=== PATIENT | male | born 1935 | race Caucasian/White ===

== ENCOUNTER 2018-05-21 12:33 | Inpatient (IN) | payer MEDICARE ==
[2018-05-21 13:30] LABS: Basophils % (A) 1 %; Eosinophils # (A) 0.2 k/uL (0-0.7); Eosinophils % (A) 5 %; HCT 30.5 % (39.0-53.0); HGB 9.8 gm/dL (13.0-17.5); Lymphocytes # (A) 0.5 k/uL (1.0-4.8); Lymphocytes % (A) 13 %; MCH 28.7 pg (25.0-35.0); MCV 89.7 fL (80.0-100.0); Mean Platelet Volume 8.2; Monocytes # (A) 0.1 k/uL (0-1.0); Monocytes % (A) 3 %; Neutrophils # (A) 3.1 k/uL (1.3-7.7); Neutrophils % (A) 75 %; Platelet Count 131 k/uL (150-450); RDW 14.8 % (11.5-15.5); WBC 4.2 k/uL (3.8-10.6)
[2018-05-21 13:41] LABS: Partial Thromboplastin Time 37.6 sec (22.0-30.0); Prothrombin Time 10.9 sec (9.0-12.0)
--- NOTE | 2018-05-21 13:41 | XR ---
EXAMINATION TYPE: XR chest 2V DATE OF EXAM: 05/21/2018 COMPARISON: NONE HISTORY: Hypotensive and chest pain. TECHNIQUE: Frontal and lateral views of the chest are obtained. FINDINGS: Overlying sternal wires and mediastinal clips are seen. Metallic aortic valve is noted. Ca rdiac silhouette size is enlarged. There is bibasilar opacity consistent with atelectasis and/or inf iltrate. Atherosclerotic thoracic aorta is seen. The osseous structures are somewhat demineralized. IMPRESSION: Cardiomegaly with patchy bibasilar acute infiltrate and/or atelectasis.
[2018-05-21 14:00] LABS: Calcium 8.7 mg/dL (8.4-10.2); Total Bilirubin 0.9 mg/dL (0.2-1.3); Total Protein 5.9 g/dL (6.3-8.2)
[2018-05-21 14:05] LABS: Potassium 6.3 mmol/L (3.5-5.1)
[2018-05-21] MEDS ORDERED: AZITHROMYCIN 500 MG in SODIUM CHLORIDE 0.9% 250 ML IVPB STA (14:29)
[2018-05-21] MEDS ORDERED: SODIUM CHLORIDE 0.9% 500 ML 500 ML IV ONE (14:30)
[2018-05-21] MEDS ORDERED: FUROSEMIDE 10 MG/ML 2 ML VIAL IV ONE (14:31)
[2018-05-21] MEDS ORDERED: NALOXONE 0.4 MG/ML 1 ML VIAL IV PRN (14:57)
--- NOTE | 2018-05-21 14:57 | ED ---
General Adult HPI - General Chief complaint: Recheck/Abnormal Lab/Rx Stated complaint: Hypotension Time Seen by Provider: 05/21/18 12:52 Source: patient, family, EMS, RN notes reviewed, old records reviewed Mode of arrival: EMS Limitations: no limitations - History of Present Illness Initial comments: 82-year-old male presents for evaluation of low blood pressure. Patient has been dealing with increased generalized weakness and low blood pressure for some time. His blood pressure does trend low. "Home care nurse today indicating low blood pressure and was instructed to present to the emergency department. Initially patient has no complaints, no cough or chest pain. He does have dysuria however this is at baseline. Has history of congestive heart failure and has had valve replacement. Patient denies worsening lower extremity edema, this is at baseline. Denies abdominal pain nausea vomiting. Denies fever or chills. - Related Data Home Medications Medication Instructions Recorded Confirmed Amitriptyline HCl 10 mg PO HS 05/21/18 05/21/18 Atorvastatin Calcium [Lipitor] 40 mg PO SA 05/21/18 05/21/18 Carvedilol 12.5 mg PO BID 05/21/18 05/21/18 Clopidogrel [Plavix] 75 mg PO DAILY 05/21/18 05/21/18 Cyclobenzaprine HCl 10 mg PO HS 05/21/18 05/21/18 Ergocalciferol [Vitamin D2] 50,000 unit PO SA 05/21/18 05/21/18 Furosemide [Lasix] 20 mg PO DAILY 05/21/18 05/21/18 Lisinopril [Zestril] 10 mg PO DAILY 05/21/18 05/21/18 metFORMIN HCL ER [Glucophage Xr] 500 mg PO BID 05/21/18 05/21/18 Allergies Allergy/AdvReac Type Severity Reaction Status Date / Time No Known Allergies Allergy Verified 05/21/18 13:44 Review of Systems ROS Statement: Those systems with pertinent positive or pertinent negative responses have been documented in the HPI. ROS Other: All systems not noted in ROS Statement are negative. Past Medical History Past Medical History: Heart Failure, COPD, Hypertension History of Any Multi-Drug Resistant Organisms: None Reported Past Surgical History: Unable to Obtain Past Psychological History: No Psychological Hx Reported Smoking Status: Former smoker Past Alcohol Use History: None Reported Past Drug Use History: None Reported General Exam Limitations: no limitations General appearance: alert, in no apparent distress Head exam: Present: atraumatic, normocephalic Eye exam: Present: normal appearance, PERRL ENT exam: Present: normal exam Neck exam: Present: normal inspection. Absent: tenderness, meningismus Respiratory exam: Present: normal lung sounds bilaterally. Absent: respiratory distress Cardiovascular Exam: Present: regular rate, irregular rhythm, systolic murmur GI/Abdominal exam: Present: soft. Absent: distended, tenderness, guarding Extremities exam: Present: pedal edema Neurological exam: Present: alert, oriented X3, CN II-XII intact. Absent: motor sensory deficit Psychiatric exam: Present: normal affect, normal mood Course Vital Signs 05/21/18 12:48 Temperature 97.8 F Pulse Rate 58 L Respiratory 18 Rate Blood Pressure 90/63 O2 Sat by Pulse 95 Oximetry EKG Findings - EKG Comments: EKG Findings:: EKG: Atrial flutter with variable AV block, left axis deviation, right bundle branch block, no ST segment elevation, rate of 93, QRS duration 148 , QTC 517 Medical Decision Making - Medical Decision Making 82-year-old male with generalized weakness, low blood pressure. Patient's blood pressure is low on initial evaluation, primary care physician has been adjusting his medications recently due to chronic low blood pressure. Laboratory studies are obtained in the emergency Department, white blood cell count normal 4.2, hemoglobin 9.8, no baseline. Patient has a potassium is 6.3 with rhabdomyolysis. Creatinine 2.94, no baseline known. Lactic acid mildly elevated 2.8, BNP significantly elevated 10,000. Chest x-ray does show concern for basilar infiltrate. Patient is started on antibiotics. He is given small volume of IV hydration for his hyperkalemia in addition to his moderately low blood pressure. He is also given a dose of Lasix to encourage diuresis. Patient will be admitted for further evaluation and treatment. Case discussed with the admitting physician. - Lab Data Result diagrams: 05/21/18 13:10 05/21/18 13:10 Lab Results 05/21/18 05/21/18 05/21/18 Range/Units 13:10 13:10 13:10 WBC 4.2 (3.8-10.6) k/uL RBC 3.40 L (4.30-5.90) m/uL Hgb 9.8 L (13.0-17.5) gm/dL Hct 30.5 L (39.0-53.0) % MCV 89.7 (80.0-100.0) fL MCH 28.7 (25.0-35.0) pg MCHC 32.0 (31.0-37.0) g/dL RDW 14.8 (11.5-15.5) % Plt Count 131 L (150-450) k/uL Neutrophils % 75 % Lymphocytes % 13 % Monocytes % 3 % Eosinophils % 5 % Basophils % 1 % Neutrophils # 3.1 (1.3-7.7) k/uL Lymphocytes # 0.5 L (1.0-4.8) k/uL Monocytes # 0.1 (0-1.0) k/uL Eosinophils # 0.2 (0-0.7) k/uL Basophils # 0.0 (0-0.2) k/uL PT (9.0-12.0) sec INR (<1.2) APTT (22.0-30.0) sec Sodium 136 L (137-145) mmol/L Potassium 6.3 H* (3.5-5.1) mmol/L Chloride 104 (98-107) mmol/L Carbon Dioxide 23 (22-30) mmol/L Anion Gap 9 mmol/L BUN 75 H (9-20) mg/dL Creatinine 2.94 H (0.66-1.25) mg/dL Est GFR (CKD-EPI)AfAm 22 (>60 ml/min/1.73 sqM) Est GFR (CKD-EPI)NonAf 19 (>60 ml/min/1.73 sqM) Glucose 193 H (74-99) mg/dL Plasma Lactic Acid Domingo 2.8 H* (0.7-2.0) mmol/L Calcium 8.7 (8.4-10.2) mg/dL Total Bilirubin 0.9 (0.2-1.3) mg/dL AST 23 (17-59) U/L ALT 26 (21-72) U/L Alkaline Phosphatase 69 (38-126) U/L Troponin I (0.000-0.034) ng/mL NT-Pro-B Natriuret Pep pg/mL Total Protein 5.9 L (6.3-8.2) g/dL Albumin 3.0 L (3.5-5.0) g/dL 05/21/18 05/21/18 05/21/18 Range/Units 13:10 13:10 13:10 WBC (3.8-10.6) k/uL RBC (4.30-5.90) m/uL Hgb (13.0-17.5) gm/dL Hct (39.0-53.0) % MCV (80.0-100.0) fL MCH (25.0-35.0) pg MCHC (31.0-37.0) g/dL RDW (11.5-15.5) % Plt Count (150-450) k/uL Neutrophils % % Lymphocytes % % Monocytes % % Eosinophils % % Basophils % % Neutrophils # (1.3-7.7) k/uL Lymphocytes # (1.0-4.8) k/uL Monocytes # (0-1.0) k/uL Eosinophils # (0-0.7) k/uL Basophils # (0-0.2) k/uL PT 10.9 (9.0-12.0) sec INR 1.0 (<1.2) APTT 37.6 H (22.0-30.0) sec Sodium (137-145) mmol/L Potassium (3.5-5.1) mmol/L Chloride (98-107) mmol/L Carbon Dioxide (22-30) mmol/L Anion Gap mmol/L BUN (9-20) mg/dL Creatinine (0.66-1.25) mg/dL Est GFR (CKD-EPI)AfAm (>60 ml/min/1.73 sqM) Est GFR (CKD-EPI)NonAf (>60 ml/min/1.73 sqM) Glucose (74-99) mg/dL Plasma Lactic Acid Domingo (0.7-2.0) mmol/L Calcium (8.4-10.2) mg/dL Total Bilirubin (0.2-1.3) mg/dL AST (17-59) U/L ALT (21-72) U/L Alkaline Phosphatase (38-126) U/L Troponin I 0.021 (0.000-0.034) ng/mL NT-Pro-B Natriuret Pep 70121 pg/mL Total Protein (6.3-8.2) g/dL Albumin (3.5-5.0) g/dL Disposition Clinical Impression: Hyperkalemia, Acute renal failure, Atrial flutter, CHF (congestive heart failure), Community acquired pneumonia Disposition: ADMITTED IP TO THIS HOSP Condition: Serious Is patient prescribed a controlled substance at d/c from ED?: No Referrals: Jayna Emerson DO [Primary Care Provider] - 1-2 days Decision to Admit Reason: Admit from EC Decision Date: 05/21/18 Decision Time: 14:57
[2018-05-21] MEDS: SODIUM CHLORIDE 0.9% 1,000 ML IV SCH (15:42)
--- NOTE | 2018-05-21 17:18 | ECHOF ---
Referral Reason:dayanara MEASUREMENTS -------- HEIGHT: 180.3 cm WEIGHT: 117.9 kg BP: 90/63 IVSd: 1.1 cm (0.6 - 1.1) LVIDd: 3.0 cm (3.9 - 5.3) LVPWd: 1.2 cm (0.6 - 1.1) IVSs: 1.5 cm LVIDs: 1.7 cm LVPWs: 1.5 cm LA Diam: 5.1 cm (2.7 - 3.8) RVIDd: 2.8 cm (< 3.3) MV E Calvin: 1.90 m/s MV DecT: 204 ms MV A Calvin: 0.56 m/s MV E/A Ratio: 3.42 RAP: 5.00 mmHg RVSP: 41.55 mmHg FINDINGS -------- Sinus rhythm. This was a technically adequate study. The left ventricular size is normal. There is borderline concentric left ventricular hypertrophy. Overall left ventricular systolic function is normal with, an EF between 55 - 60 %. The right ventricle is normal in size and function. The left atrium is markedly dilated. The right atrium is normal in size. There is mild aortic valve sclerosis. Trace amount of aortic regurgitation. There is no evidence of aortic stenosis. There is trace to mild mitral regurgitation. Normally functioning bioprosthetic mitral valve. Lcgl-iz-auvxatzg tricuspid regurgitation present. There is mild pulmonary hypertension. The right ventricular systolic pressure, as measured by Doppler, is 41.55mmHg. The pulmonic valve was not well visualized. The aortic root size is normal. IVC Not well visulized. There is no pericardial effusion. CONCLUSIONS -------- 1. Sinus rhythm. 2. This was a technically adequate study. 3. The left ventricular size is normal. 4. There is borderline concentric left ventricular hypertrophy. 5. Overall left ventricular systolic function is normal with, an EF between 55 - 60 %. 6. The left atrium is markedly dilated. 7. There is mild aortic valve sclerosis. 8. Trace amount of aortic regurgitation. 9. There is trace to mild mitral regurgitation. 10. Normally functioning bioprosthetic mitral valve. 11. Dsjo-gy-wncupgcn tricuspid regurgitation present. 12. There is mild pulmonary hypertension. 13. The right ventricular systolic pressure, as measured by Doppler, is 41.55mmHg. 14. The pulmonic valve was not well visualized. 15. The aortic root size is normal. 16. IVC Not well visulized. 17. There is no pericardial effusion. TRANSIT DEPARTMENT CLERK: Roshan Maya RDCS
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
[2018-05-21] MEDS ORDERED: SODIUM POLYSTYRENE SULFONATE 15 GM/60 ML BOTTLE PO STA (19:16)
--- NOTE | 2018-05-21 19:25 | P.HPADDEND ---
H&P Addendum H&P Addendum Date: 05/21/18 Please add to assessment and plan: #13 acute kidney injury, patient denies having any history of kidney disease his creatinine on presentation 2.94 patient has severe hyperkalemia potassium 6.3 #14 EKG showing evidence of atrial flutter with variable AV block, patient denies having any history of atrial fibrillation or atrial flutter Cardiology consult following We'll add Kayexalate Will check kidney ultrasound and consult nephrology
[2018-05-21] MEDS: PIPERACILLIN-TAZOBACTAM 3.375 GM in SODIUM CHLORIDE 0.9% 100 ML IVPB SCH (20:05)
[2018-05-21 20:39] LABS: Glucose,Whole Blood 177 mg/dL (75-99)
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
[2018-05-21] MEDS: AMITRIPTYLINE HCL 10 MG TAB PO SCH (23:43)
[2018-05-21] MEDS: CYCLOBENZAPRINE 10 MG TAB PO SCH (23:43)
[2018-05-21] MEDS: MUPIROCIN 2% OINT 22 GM TUBE TOPICAL SCH (23:45)
--- NOTE | 2018-05-22 01:37 | US ---
EXAMINATION TYPE: US kidneys/renal and bladder DATE OF EXAM: 05/21/2018 COMPARISON: NONE CLINICAL HISTORY: acute renal failure. acute renal failure EXAM MEASUREMENTS: Right Kidney: 10.6 x 4.9 x 4.8 cm Left Kidney: 10.6 x 4.1 x 3.4 cm Right Kidney: Cystic area seen 2.8 x 3.0 x 2.0cm. Cortical thinning. Left Kidney: Hypoechoic area lower pole 1.6 x 1.9 x 2.2cm. Bladder: wnl Bilateral Jets seen: No There is no evidence for hydronephrosis at this point in time. No nephrolithiasis is seen. The urin judi bladder is anechoic. IMPRESSION: There are bilateral renal cysts. Mild renal atrophy. No evidence of solid renal mass or obstruction. No hydronephrosis.
[2018-05-22 06:41] LABS: Glucose,Whole Blood 126 mg/dL (75-99)
[2018-05-22] MEDS: INSULIN ASPART 100 UNIT/ML 1 ML 10 ML VIAL SQ SCH ×4 (07:01→20:18)
--- NOTE | 2018-05-22 08:45 | US ---
EXAMINATION TYPE: US venous doppler duplex LE DATE OF EXAM: 05/22/2018 7:23 AM COMPARISON: NONE CLINICAL HISTORY: DVT. Leg Swelling SIDE PERFORMED: Bilateral TECHNIQUE: The lower extremity deep venous system is examined utilizing real time linear array sonog cristobal with graded compression, doppler sonography and color-flow sonography. VESSELS IMAGED: External Iliac Vein (EIV) Common Femoral Vein Deep Femoral Vein Greater Saphenous Vein * Femoral Vein Popliteal Vein Small Saphenous Vein * Proximal Calf Veins (* superficial vessels) Grayscale, color doppler, spectral doppler imaging performed of the deep veins of the lower extremiti es. Right Leg: Negative for DVT Left Leg: Negative for DVT There is normal flow, compressibility, vascular waveforms. Edema channels are noted within the soft t issues of the lower extremities IMPRESSION: No evident deep venous thrombosis at or above the knees.
[2018-05-22] MEDS: MUPIROCIN 2% OINT 22 GM TUBE TOPICAL SCH (08:54)
[2018-05-22] MEDS: PIPERACILLIN-TAZOBACTAM 3.375 GM in SODIUM CHLORIDE 0.9% 100 ML IVPB SCH ×3 (08:54→23:42)
[2018-05-22] MEDS: CLOPIDOGREL 75 MG TAB PO SCH (08:54)
[2018-05-22] MEDS ORDERED: FUROSEMIDE 20 MG TAB PO SCH (09:00)
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
[2018-05-22] MEDS ORDERED: HEPARIN SODIUM,PORCINE 5,000 UNIT/ML 1 ML VIAL IV ONE (11:26)
[2018-05-22] MEDS ORDERED: HEPARIN SODIUM,PORCINE 5,000 UNIT/ML 1 ML VIAL IV PRN (11:26)
[2018-05-22 11:27] LABS: Glucose,Whole Blood 171 mg/dL (75-99)
[2018-05-22 11:29] LABS: HCT 28.7 % (39.0-53.0); HGB 9.1 gm/dL (13.0-17.5); Hypochromasia Slight; MCH 29.1 pg (25.0-35.0); MCHC 31.9 g/dL (31.0-37.0); MCV 91.1 fL (80.0-100.0); Mean Platelet Volume 7.6; Platelet Count 137 k/uL (150-450); RBC 3.15 m/uL (4.30-5.90); RDW 14.9 % (11.5-15.5); WBC 4.5 k/uL (3.8-10.6)
[2018-05-22] MEDS ORDERED: FUROSEMIDE 10 MG/ML 4 ML VIAL IV SCH (11:30)
[2018-05-22 11:39] LABS: Calcium 8.7 mg/dL (8.4-10.2)
[2018-05-22 11:48] LABS: Partial Thromboplastin Time 39.9 sec (22.0-30.0)
[2018-05-22] MEDS ORDERED: DEXTROSE 50%-WATER 50 ML SYRINGE IVP STA ×3 (11:49→23:35)
[2018-05-22] MEDS ORDERED: INSULIN REGULAR 100 UNIT/ML VIAL IV ONE ×3 (11:49→23:34)
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
[2018-05-22] MEDS: SODIUM CHLORIDE 0.9% 1,000 ML IV SCH (12:05)
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
[2018-05-22] MEDS: METOPROLOL TARTRATE 12.5 MG TAB PO SCH ×2 (12:31→20:19)
[2018-05-22] MEDS: MIDODRINE 5 MG TAB PO SCH ×2 (12:31→16:29)
[2018-05-22] MEDS ORDERED: SODIUM POLYSTYRENE SULFONATE 15 GM/60 ML BOTTLE PO STA (12:39)
--- NOTE | 2018-05-22 12:48 | P.PN ---
Subjective Progress Note Date: 05/22/18 Kj Alarcon is an 82-year-old male patient of Dr. Jayna Emerson who presented to [facility] emergency room with multiple medical problems, patient was complaining of increasing weakness, and hypotension, he had multiple falls at home, requiring intervention by the fire department as he was unable to stand up on his own and his is unable to help him up, patient had low blood pressure on the day of admission and was told by his visiting nurse to go to emergency room. Patient states that he moved to this area 1-1/2 years ago from [facility], he has been following with Dr. Jayna Emerson since he came to [facility] he does not see any other specialist he has a visiting nurse who goes to his home and help with lower extremity ulcers management he has an Unna boot on his left lower extremity. Patient has a known history of congestive heart failure, COPD, hypertension, hyperlipidemia, coronary artery disease with previous history of angioplasty and stent placement, history of mitral valve replacement with bovine valve, history of partial gastric resection due to bleeding ulcers, and history of right total knee arthroplasty. Patient used to smoke but quit in 1989 he started smoking as a teenager. On 05/22/2018 patient is alert and oriented 3 in no apparent distress he is sitting up at the edge of the bed his shortness of breath is slightly better he has occasional cough otherwise he denies any complaints there is no fever or chills no headache or dizziness no chest pain no nausea or vomiting no abdominal pain no diarrhea and no urinary symptoms. Objective - Vital Signs Vital signs: Vital Signs Temp 98.1 F 05/22/18 11:40 Pulse 119 H 05/22/18 11:40 Resp 20 05/22/18 11:40 BP 106/66 05/22/18 11:40 Pulse Ox 95 05/22/18 11:40 Intake & Output 05/21/18 05/22/18 05/22/18 18:59 06:59 18:59 Intake Total 600 240 Output Total 450 Balance 150 240 Weight 117.934 kg Intake: Intake, IV Titration 600 Amount Piperacillin-Tazobactam 3 100 .375 gm In Sodium Chloride 0.9% 100 ml @ 25 mls/hr IVPB Q12HR [facility] Rx #:[id number] Sodium Chloride 0.9% 1, 500 000 ml @ 50 mls/hr IV . Q20H [facility] Rx#:[id number] Oral 240 Output: Urine 450 - Exam In general patient is alert and oriented 3 in no apparent distress HEENT head normocephalic and atraumatic Neck is supple no JVD no goiter no lymphadenopathy Chest exam reveals a scattered crackles bilaterally no wheezing Cardiac exam reveals regular heart sounds S1 and S2 no gallops no murmurs Abdomen is soft nontender no organomegaly with normal bowel sounds Extremity exam reveales bilateral legs with gauze wrap and julien wraps extenting t just below the knee - Labs CBC & Chem 7: 05/22/18 10:53 05/22/18 10:53 Labs: Abnormal Lab Results - Last 24 Hours (Table) 05/21/18 05/21/18 05/21/18 Range/Units 13:10 13:10 13:10 RBC 3.40 L (4.30-5.90) m/uL Hgb 9.8 L (13.0-17.5) gm/dL Hct 30.5 L (39.0-53.0) % Plt Count 131 L (150-450) k/uL Lymphocytes # 0.5 L (1.0-4.8) k/uL APTT (22.0-30.0) sec Sodium 136 L (137-145) mmol/L Potassium 6.3 H* (3.5-5.1) mmol/L BUN 75 H (9-20) mg/dL Creatinine 2.94 H (0.66-1.25) mg/dL Glucose 193 H (74-99) mg/dL POC Glucose (mg/dL) (75-99) mg/dL Plasma Lactic Acid Domingo 2.8 H* (0.7-2.0) mmol/L Total Protein 5.9 L (6.3-8.2) g/dL Albumin 3.0 L (3.5-5.0) g/dL 05/21/18 05/21/18 05/21/18 Range/Units 13:10 17:50 20:36 RBC (4.30-5.90) m/uL Hgb (13.0-17.5) gm/dL Hct (39.0-53.0) % Plt Count (150-450) k/uL Lymphocytes # (1.0-4.8) k/uL APTT 37.6 H (22.0-30.0) sec Sodium (137-145) mmol/L Potassium (3.5-5.1) mmol/L BUN (9-20) mg/dL Creatinine (0.66-1.25) mg/dL Glucose (74-99) mg/dL POC Glucose (mg/dL) 177 H (75-99) mg/dL Plasma Lactic Acid Domingo 3.2 H* (0.7-2.0) mmol/L Total Protein (6.3-8.2) g/dL Albumin (3.5-5.0) g/dL 05/22/18 05/22/18 05/22/18 Range/Units 06:26 10:53 10:53 RBC 3.15 L (4.30-5.90) m/uL Hgb 9.1 L (13.0-17.5) gm/dL Hct 28.7 L (39.0-53.0) % Plt Count 137 L (150-450) k/uL Lymphocytes # (1.0-4.8) k/uL APTT (22.0-30.0) sec Sodium (137-145) mmol/L Potassium 6.0 H (3.5-5.1) mmol/L BUN 68 H (9-20) mg/dL Creatinine 2.80 H (0.66-1.25) mg/dL Glucose 144 H (74-99) mg/dL POC Glucose (mg/dL) 126 H (75-99) mg/dL Plasma Lactic Acid Domingo (0.7-2.0) mmol/L Total Protein (6.3-8.2) g/dL Albumin (3.5-5.0) g/dL 05/22/18 05/22/18 Range/Units 10:53 11:19 RBC (4.30-5.90) m/uL Hgb (13.0-17.5) gm/dL Hct (39.0-53.0) % Plt Count (150-450) k/uL Lymphocytes # (1.0-4.8) k/uL APTT 39.9 H (22.0-30.0) sec Sodium (137-145) mmol/L Potassium (3.5-5.1) mmol/L BUN (9-20) mg/dL Creatinine (0.66-1.25) mg/dL Glucose (74-99) mg/dL POC Glucose (mg/dL) 171 H (75-99) mg/dL Plasma Lactic Acid Domingo (0.7-2.0) mmol/L Total Protein (6.3-8.2) g/dL Albumin (3.5-5.0) g/dL Assessment and Plan Plan: #1 acute exacerbation of congestive heart failure #2 by basilar infiltrate suggestive of pneumonia #3 underlying history of chronic obstructive pulmonary disease #4 underlying history of coronary artery disease with previous history of stent placement #5 underlying history of hypertension, with hypotension at this time, patient was maintained on lisinopril and Coreg at home #6 generalized weakness with multiple falls #7 sepsis with lactic acidosis #8 severe hyperkalemia #9 protein calorie malnutrition decreased albumin down to 3 #10 bilateral lower extremity cellulitis #11 multiple skin breakdown on the sacral area and bilateral lower extremities #12 underlying history of [id number] diabetes mellitus millimeters maintained on metformin #13 acute kidney injury, patient denies having any history of kidney disease his creatinine on presentation 2.94 patient has severe hyperkalemia potassium 6.3 #14 EKG showing evidence of atrial flutter with variable AV block, patient denies having any history of atrial fibrillation or atrial flutter Plan at this time patient is admitted to telemetry floor He was started on IV antibiotic Rocephin and Zithromax He was given IV Lasix in the emergency room Echocardiogram was ordered Will consult cardiology, pulmonary, nephrology and infectious disease Prognosis is guarded due to age generalized debility and multiple medical problems Will follow closely
[2018-05-22] MEDS: HEPARIN SOD,PORK IN 0.45% NACL 25,000 UNIT in 0.45% NACL 1 250ML.BAG IV SCH (12:51)
--- NOTE | 2018-05-22 14:04 | XR ---
EXAMINATION TYPE: XR chest 1V portable DATE OF EXAM: 05/22/2018 COMPARISON: Prior chest x-ray 05/21/2018 HISTORY: Shortness of breath, atrial fibrillation and congestive heart failure TECHNIQUE: Single frontal view of the chest is obtained. FINDINGS: Patient is rotated and post median sternotomy. There are overlying cardiac leads. No pneum othorax. Patchy basilar density again noted obscuring the left hemidiaphragm. Heart size is likely st able. Arthropathy noted shoulders. IMPRESSION: Possible left lower lobe atelectasis versus pneumonia and associated effusion, follow-up PA and lateral chest x-ray is recommended.
[2018-05-22] MEDS ORDERED: AZITHROMYCIN 500 MG TAB PO SCH (16:00)
[2018-05-22 16:43] LABS: Glucose,Whole Blood 129 mg/dL (75-99)
[2018-05-22 18:15] LABS: Appearance,Urine Clear (Clear); Bilirubin,Urine Negative (Negative); Blood,Urine Negative (Negative); Color,Urine Light Yellow; Glucose,Urine (UA) Negative (Negative); Ketones,Urine Negative (Negative); Leukocyte Esterase,Urine Negative (Negative); Nitrite,Urine Negative (Negative); Protein,Urine Negative (Negative); Urobilinogen,Urine <2.0 mg/dL (<2.0)
[2018-05-22] MEDS ORDERED: ALBUTEROL NEBULIZED 2.5 MG/3 ML INHALATION STA (18:23)
[2018-05-22 18:54] LABS: Hemoglobin A1C 6.6 % (4.0-6.0)
[2018-05-22 20:14] LABS: Glucose,Whole Blood 143 mg/dL (75-99)
[2018-05-22] MEDS: CYCLOBENZAPRINE 10 MG TAB PO SCH (20:18)
[2018-05-22] MEDS: AMITRIPTYLINE HCL 10 MG TAB PO SCH (20:19)
--- NOTE | 2018-05-22 22:58 | P.PN ---
Subjective Progress Note Date: 05/22/18 82-year-old male cared for by Dr. Jayna Emerson in the outpatient setting over the last year and a half after they moved from the [facility]. He has apparently peripheral vascular disease and chronic venous stasis and has difficulties with chronic ulcerations the left lower extremity for which he has been treated with an Unna boot per the visiting nurse on an ongoing basis. Despite that he's been having difficulties with a large amount of drainage from the leg because of the skin openings that he has and drainage. He relates to little discomfort at this time. However at home he became increasingly weak over the days before admission. Eventually he simply just fell and the family could not get him up. Constantly EMS was called and he was brought to hospital. He is not complaining of severe amount of pain but still feels weak in quite poorly overall. He does have multiple medical troubles includes underlying coronary artery disease. He has a history of mitral valve replacement, chronic anemia, no known history of renal failure. 05/22/2018 patient still feels poorly. The leg wrap is helped to lower extremity edema considerably and they are not painful. Drainage is improved since coming to hospital. Objective - Vital Signs Vital signs: Vital Signs Temp 98.8 F 05/22/18 20:00 Pulse 105 H 05/22/18 20:00 Resp 20 05/22/18 20:00 BP 84/50 05/22/18 20:00 Pulse Ox 94 L 05/22/18 20:00 Intake & Output 05/22/18 05/22/18 05/23/18 06:59 18:59 06:59 Intake Total 600 720 Output Total 450 0 Balance 150 720 Weight 117.934 kg Intake: Intake, IV Titration 600 Amount Piperacillin-Tazobactam 3 100 .375 gm In Sodium Chloride 0.9% 100 ml @ 25 mls/hr IVPB Q12HR RASHEL Rx #:[id number] Sodium Chloride 0.9% 1, 500 000 ml @ 50 mls/hr IV . Q20H RASHEL Rx#:[id number] Oral 720 Output: Urine 450 0 Post Void Residual 0 - Labs CBC & Chem 7: 05/22/18 10:53 05/22/18 16:03 Labs: Abnormal Lab Results - Last 24 Hours (Table) 05/22/18 05/22/18 05/22/18 Range/Units 06:26 08:26 10:53 RBC 3.15 L (4.30-5.90) m/uL Hgb 9.1 L (13.0-17.5) gm/dL Hct 28.7 L (39.0-53.0) % Plt Count 137 L (150-450) k/uL APTT (22.0-30.0) sec Potassium (3.5-5.1) mmol/L BUN (9-20) mg/dL Creatinine (0.66-1.25) mg/dL Glucose (74-99) mg/dL POC Glucose (mg/dL) 126 H (75-99) mg/dL Hemoglobin A1c 6.6 H (4.0-6.0) % 05/22/18 05/22/18 05/22/18 Range/Units 10:53 10:53 11:19 RBC (4.30-5.90) m/uL Hgb (13.0-17.5) gm/dL Hct (39.0-53.0) % Plt Count (150-450) k/uL APTT 39.9 H (22.0-30.0) sec Potassium 6.0 H (3.5-5.1) mmol/L BUN 68 H (9-20) mg/dL Creatinine 2.80 H (0.66-1.25) mg/dL Glucose 144 H (74-99) mg/dL POC Glucose (mg/dL) 171 H (75-99) mg/dL Hemoglobin A1c (4.0-6.0) % 05/22/18 05/22/18 05/22/18 Range/Units 16:03 16:38 18:52 RBC (4.30-5.90) m/uL Hgb (13.0-17.5) gm/dL Hct (39.0-53.0) % Plt Count (150-450) k/uL APTT 53.6 H (22.0-30.0) sec Potassium 6.0 H (3.5-5.1) mmol/L BUN (9-20) mg/dL Creatinine (0.66-1.25) mg/dL Glucose (74-99) mg/dL POC Glucose (mg/dL) 129 H (75-99) mg/dL Hemoglobin A1c (4.0-6.0) % 05/22/18 Range/Units 20:12 RBC (4.30-5.90) m/uL Hgb (13.0-17.5) gm/dL Hct (39.0-53.0) % Plt Count (150-450) k/uL APTT (22.0-30.0) sec Potassium (3.5-5.1) mmol/L BUN (9-20) mg/dL Creatinine (0.66-1.25) mg/dL Glucose (74-99) mg/dL POC Glucose (mg/dL) 143 H (75-99) mg/dL Hemoglobin A1c (4.0-6.0) % Microbiology - Last 24 Hours (Table) 05/21/18 23:50 Gram Stain - Preliminary Leg - Left Wound Culture - Preliminary 05/21/18 13:10 Blood Culture - Preliminary Blood No Growth after 24 hours Assessment and Plan (1) Acute renal failure Current Visit: Yes Status: Acute Code(s): N17.9 - ACUTE KIDNEY FAILURE, UNSPECIFIED SNOMED Code(s): 26697041 (2) Chronic venous stasis dermatitis of both lower extremities Narrative/Plan: 82-year-old male who has multiple medical troubles including a history of underlying coronary artery disease presents to Hospital with onset of profound weakness fall and unable to be brought to hospital by the family and consequently was brought by EMS. The patient remains very weak but he does have quite clear mentation. There is evidence of the acute renal failure as well as hyperkalemia and nephrology consult is pending. The patient does have any history of known coronary disease and a mitral valve replacement and appears to have a component of acute congestive heart failure diastolic type is noted by the markedly elevated BNP. There is a lactic acidosis is improving and appears to be multifactorial including concerns to infection to the lower extremity, as well as complication of the acute renal failure and congestive heart failure. Antimicrobial therapy has been initially with piperacillin tazobactam and azithromycin. Cultures are in process and will further help direct antimicrobial therapy. No history of MRSA infection and we'll not utilize vancomycin therapy with the acute renal failure at this time. The pulmonary changes appear to be congestive heart failure. The patient is unclear about his baseline anemia and thrombocytopenia and will be monitored. Data from the outside physicians will hopefully give some further background in magnitude of current changes. Local wound care with foam dressings has been requested. Given the swelling to the lower extremities lateral lower extremity venous duplex have been requested to ensure no evidence of deep venous thrombosis and potentially further characterize his venous insufficiency. 05/22/2018 Dopplers of the performed without evidence of deep venous thrombosis. Drainage from the lower extremities improved with elevation wraps. Does appear to be feeling somewhat better since admission. Cultures are in process. Patient has now been seen by nephrology and the acute renal failure is being addressed as the hyperkalemia. Critical care is following and they strongly doubt pneumonia. Current antibiotic therapy as directed to the potential cellulitis to the lower extremities cultures in process and will further help direct antimicrobial therapy. Current Visit: Yes Status: Acute Code(s): I87.2 - VENOUS INSUFFICIENCY ( CHRONIC) (PERIPHERAL) SNOMED Code(s): 86173559
[2018-05-23 02:02] LABS: Appearance,Urine Clear (Clear); Bilirubin,Urine Negative (Negative); Blood,Urine Negative (Negative); Color,Urine Yellow; Glucose,Urine (UA) Negative (Negative); Ketones,Urine Negative (Negative); Leukocyte Esterase,Urine Negative (Negative); Nitrite,Urine Negative (Negative); Protein,Urine Negative (Negative); Specific Gravity,Urine 1.011 (1.001-1.035); Urobilinogen,Urine <2.0 mg/dL (<2.0)
[2018-05-23 05:54] LABS: Iron Saturation 19.55 (15.00-50.00)
[2018-05-23 06:32] LABS: Basophils % (A) 0 %; Eosinophils # (A) 0.1 k/uL (0-0.7); Eosinophils % (A) 2 %; HCT 29.5 % (39.0-53.0); Hypochromasia Slight; Lymphocytes # (A) 0.6 k/uL (1.0-4.8); Lymphocytes % (A) 11 %; MCH 27.9 pg (25.0-35.0); MCHC 30.7 g/dL (31.0-37.0); MCV 90.8 fL (80.0-100.0); Mean Platelet Volume 7.4; Monocytes # (A) 0.2 k/uL (0-1.0); Monocytes % (A) 4 %; Neutrophils # (A) 4.4 k/uL (1.3-7.7); Neutrophils % (A) 80 %; Platelet Count 143 k/uL (150-450); RBC 3.25 m/uL (4.30-5.90); WBC 5.4 k/uL (3.8-10.6)
[2018-05-23 06:38] LABS: Albumin 2.7 g/dL (3.5-5.0); Calcium 8.5 mg/dL (8.4-10.2); Magnesium 2.5 mg/dL (1.6-2.3); Potassium 5.6 mmol/L (3.5-5.1); Total Bilirubin 0.9 mg/dL (0.2-1.3); Total Protein 5.4 g/dL (6.3-8.2)
[2018-05-23 06:48] LABS: Glucose,Whole Blood 92 mg/dL (75-99)
[2018-05-23] MEDS: MIDODRINE 5 MG TAB PO SCH ×2 (06:50→15:58)
[2018-05-23] MEDS: INSULIN ASPART 100 UNIT/ML 1 ML 10 ML VIAL SQ SCH ×4 (06:50→21:35)
[2018-05-23] MEDS: MUPIROCIN 2% OINT 22 GM TUBE TOPICAL SCH (08:50)
[2018-05-23] MEDS: PIPERACILLIN-TAZOBACTAM 3.375 GM in SODIUM CHLORIDE 0.9% 100 ML IVPB SCH ×2 (08:53→15:57)
[2018-05-23] MEDS: CLOPIDOGREL 75 MG TAB PO SCH (08:53)
[2018-05-23] MEDS: METOPROLOL TARTRATE 12.5 MG TAB PO SCH ×2 (08:53→20:12)
[2018-05-23] MEDS ORDERED: SODIUM POLYSTYRENE SULFONATE 15 GM/60 ML BOTTLE PO STA (10:36)
--- NOTE | 2018-05-23 10:48 | P.PN ---
Subjective Progress Note Date: 05/23/18 Kj Alarcon is an 82-year-old male patient of Dr. Jayna Emerson who presented to [facility] emergency room with multiple medical problems, patient was complaining of increasing weakness, and hypotension, he had multiple falls at home, requiring intervention by the fire department as he was unable to stand up on his own and his is unable to help him up, patient had low blood pressure on the day of admission and was told by his visiting nurse to go to emergency room. Patient states that he moved to this area 1-1/2 years ago from [facility], he has been following with Dr. Jayna Emerson since he [facility] he does not see any other specialist he has a visiting nurse who goes to his home and help with lower extremity ulcers management he has an Unna boot on his left lower extremity. Patient has a known history of congestive heart failure, COPD, hypertension, hyperlipidemia, coronary artery disease with previous history of angioplasty and stent placement, history of mitral valve replacement with bovine valve, history of partial gastric resection due to bleeding ulcers, and history of right total knee arthroplasty. Patient used to smoke but quit in 1989 he started smoking as a teenager. On 05/22/2018 patient is alert and oriented 3 in no apparent distress he is sitting up at the edge of the bed his shortness of breath is slightly better he has occasional cough otherwise he denies any complaints there is no fever or chills no headache or dizziness no chest pain no nausea or vomiting no abdominal pain no diarrhea and no urinary symptoms. 05/23/2018 patient lying in bed comfortably. Denies any shortness of breath. Son with lower extremity still having lower extremity edema. Legs are is wrapped. Patient is complaining of discomfort on his bottom. Evidence of the dermatitis and small coccyx stage II ulcer. Zinc oxide ordered. Hemoglobin 9 creatinine 2.80-2.82. Potassium is 5.6 iron low at 43 Objective - Vital Signs Vital signs: Vital Signs Temp 98.1 F 05/23/18 08:00 Pulse 90 05/23/18 08:00 Resp 18 05/23/18 08:00 BP 100/66 05/23/18 08:00 Pulse Ox 95 05/23/18 08:00 Intake & Output 05/22/18 05/23/18 05/23/18 18:59 06:59 18:59 Intake Total 720 Output Total 0 200 Balance 720 -200 Weight 117.934 kg 78.5 kg Intake: Oral 720 Output: Urine 0 200 Post Void Residual 0 Other: # Voids 0 1 - Exam Head normocephalic Neck supple Lungs clear to auscultation bilaterally no wheezing or crackles Heart irregular. A. fib on monitor Abdomen is soft nontender nondistended positive bowel sounds no hepatosplenomegaly Extremities edema bilateral lower extremities. Legs are Rosalio wrapped Neuro alert and orientated to 3 Skin exam buttocks area is red, stage II ulcer on the coccyx area - Labs CBC & Chem 7: 05/23/18 05:34 05/23/18 05:34 Labs: Abnormal Lab Results - Last 24 Hours (Table) 05/22/18 05/22/18 05/22/18 Range/Units 08:26 10:53 10:53 RBC 3.15 L (4.30-5.90) m/uL Hgb 9.1 L (13.0-17.5) gm/dL Hct 28.7 L (39.0-53.0) % MCHC (31.0-37.0) g/dL Plt Count 137 L (150-450) k/uL Lymphocytes # (1.0-4.8) k/uL APTT (22.0-30.0) sec Potassium 6.0 H (3.5-5.1) mmol/L BUN 68 H (9-20) mg/dL Creatinine 2.80 H (0.66-1.25) mg/dL Glucose 144 H (74-99) mg/dL POC Glucose (mg/dL) (75-99) mg/dL Hemoglobin A1c 6.6 H (4.0-6.0) % Magnesium (1.6-2.3) mg/dL Iron (65-175) ug/dL TIBC (228-460) ug/dL AST (17-59) U/L Total Protein (6.3-8.2) g/dL Albumin (3.5-5.0) g/dL 05/22/18 05/22/18 05/22/18 Range/Units 10:53 11:19 16:03 RBC (4.30-5.90) m/uL Hgb (13.0-17.5) gm/dL Hct (39.0-53.0) % MCHC (31.0-37.0) g/dL Plt Count (150-450) k/uL Lymphocytes # (1.0-4.8) k/uL APTT 39.9 H (22.0-30.0) sec Potassium 6.0 H (3.5-5.1) mmol/L BUN (9-20) mg/dL Creatinine (0.66-1.25) mg/dL Glucose (74-99) mg/dL POC Glucose (mg/dL) 171 H (75-99) mg/dL Hemoglobin A1c (4.0-6.0) % Magnesium (1.6-2.3) mg/dL Iron (65-175) ug/dL TIBC (228-460) ug/dL AST (17-59) U/L Total Protein (6.3-8.2) g/dL Albumin (3.5-5.0) g/dL 05/22/18 05/22/18 05/22/18 Range/Units 16:03 16:38 18:52 RBC (4.30-5.90) m/uL Hgb (13.0-17.5) gm/dL Hct (39.0-53.0) % MCHC (31.0-37.0) g/dL Plt Count (150-450) k/uL Lymphocytes # (1.0-4.8) k/uL APTT 53.6 H (22.0-30.0) sec Potassium (3.5-5.1) mmol/L BUN (9-20) mg/dL Creatinine (0.66-1.25) mg/dL Glucose (74-99) mg/dL POC Glucose (mg/dL) 129 H (75-99) mg/dL Hemoglobin A1c (4.0-6.0) % Magnesium (1.6-2.3) mg/dL Iron 43 L (65-175) ug/dL TIBC 220 L (228-460) ug/dL AST (17-59) U/L Total Protein (6.3-8.2) g/dL Albumin (3.5-5.0) g/dL 05/22/18 05/22/18 05/23/18 Range/Units 20:12 22:17 05:34 RBC (4.30-5.90) m/uL Hgb (13.0-17.5) gm/dL Hct (39.0-53.0) % MCHC (31.0-37.0) g/dL Plt Count (150-450) k/uL Lymphocytes # (1.0-4.8) k/uL APTT 52.6 H (22.0-30.0) sec Potassium 5.6 H (3.5-5.1) mmol/L BUN (9-20) mg/dL Creatinine (0.66-1.25) mg/dL Glucose (74-99) mg/dL POC Glucose (mg/dL) 143 H (75-99) mg/dL Hemoglobin A1c (4.0-6.0) % Magnesium (1.6-2.3) mg/dL Iron (65-175) ug/dL TIBC (228-460) ug/dL AST (17-59) U/L Total Protein (6.3-8.2) g/dL Albumin (3.5-5.0) g/dL 05/23/18 05/23/18 Range/Units 05:34 05:34 RBC 3.25 L (4.30-5.90) m/uL Hgb 9.0 L (13.0-17.5) gm/dL Hct 29.5 L (39.0-53.0) % MCHC 30.7 L (31.0-37.0) g/dL Plt Count 143 L (150-450) k/uL Lymphocytes # 0.6 L (1.0-4.8) k/uL APTT (22.0-30.0) sec Potassium 5.6 H (3.5-5.1) mmol/L BUN 69 H (9-20) mg/dL Creatinine 2.82 H (0.66-1.25) mg/dL Glucose (74-99) mg/dL POC Glucose (mg/dL) (75-99) mg/dL Hemoglobin A1c (4.0-6.0) % Magnesium 2.5 H (1.6-2.3) mg/dL Iron (65-175) ug/dL TIBC (228-460) ug/dL AST 16 L (17-59) U/L Total Protein 5.4 L (6.3-8.2) g/dL Albumin 2.7 L (3.5-5.0) g/dL Microbiology - Last 24 Hours (Table) 05/21/18 23:50 Gram Stain - Preliminary Leg - Left Wound Culture - Preliminary 05/21/18 13:10 Blood Culture - Preliminary Blood No Growth after 24 hours Assessment and Plan Assessment: #1 acute on chronic diastolic congestive heart failure exacerbation. Currently off of diuretics. Lasix discontinued yesterday. Not on ROSALIO inhibitor due to hypotension and renal failure. Echo shows an EF of 55-60% mild to moderate tricuspid regurgitation. Cardiology following #2 atrial flutter: Cardiology is following. Currently on IV heparin for anticoagulation #3 acute kidney injury secondary to ATN due to hypotension and medications. Patient had been on ROSALIO inhibitor and diuretics at home. Nephrology is following. No evidence of hydronephrosis on renal ultrasound. Creatinine 2.8 to #4 hyperkalemia secondary to acute kidney injury and lisinopril. Potassium still 5.6. We'll give another dose of Kayexalate. Follow-up labs in a.m. #5 history of aortic valve replacement #6 iron deficiency anemia: Hemoglobin 9. Total iron 43 #7 bilateral lower extremity cellulitis . Followed by infectious disease. Continue current antibiotics. Doppler negative for DVT #8 Severe protein calorie malnutrition add Glucerna shakes #9 elevated lactic acid due to sepsis present on admission #10 generalized weakness and multiple falls due to CHF, acute kidney injury and infection #11 diabetes mellitus type 2 A1c 6.6. 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 Keep pressure off the area Consult PT GI prophylaxis Pepcid and DVT prophylaxis IV heparin I performed an examination of the patient and discussed their management with the physician Imaging Specialist. I have reviewed the Physician Imaging Specialist's notes and agree with the documented findings and plan of care
[2018-05-23] MEDS ORDERED: FUROSEMIDE 10 MG/ML 4 ML VIAL IV STA (11:16)
[2018-05-23] MEDS: ZINC OXIDE 20% OINT 28.4 GM TUBE TOPICAL SCH ×3 (11:29→20:14)
--- NOTE | 2018-05-23 11:36 | P.PN ---
Subjective Progress Note Date: 05/23/18 Principal diagnosis: CHF This is a pleasant 82-year-old gentleman with a past medical history significant for valvular heart disease and status post aortic valve replacement using bioprosthetic valve, congestive heart failure secondary to diastolic dysfunction, as well as multiple comorbid conditions was admitted to the hospital with CHF exacerbation as well as atrial fibrillation with RVR which is new to the patient. On follow-up with him today, 05/23/2018, overall he is feeling better. The shortness of breath is better. Denies having any chest pain or discomfort. The Lasix has been managed by the nephrology team. The echocardiogram showed normal LV function. He continues to be on heparin IV for anticoagulation at this point and we will consider starting the patient on oral anticoagulation. Objective - Vital Signs Vital signs: Vital Signs Temp 98 F 05/23/18 11:21 Pulse 66 05/23/18 11:21 Resp 18 05/23/18 11:21 BP 107/65 05/23/18 11:21 Pulse Ox 95 05/23/18 11:21 Intake & Output 05/22/18 05/23/18 05/23/18 18:59 06:59 18:59 Intake Total 720 Output Total 0 200 Balance 720 -200 Weight 117.934 kg 78.5 kg Intake: Oral 720 Output: Urine 0 200 Post Void Residual 0 Other: # Voids 0 1 - Constitutional General appearance: Present: no acute distress - Respiratory Respiratory: bilateral: diminished - Cardiovascular Heart sounds: normal: S1, S2 Abnormal Heart Sounds: Present: systolic murmur - Labs CBC & Chem 7: 05/23/18 05:34 05/23/18 05:34 Labs: Abnormal Lab Results - Last 24 Hours (Table) 05/22/18 05/22/18 05/22/18 Range/Units 08:26 10:53 10:53 RBC 3.15 L (4.30-5.90) m/uL Hgb 9.1 L (13.0-17.5) gm/dL Hct 28.7 L (39.0-53.0) % MCHC (31.0-37.0) g/dL Plt Count 137 L (150-450) k/uL Lymphocytes # (1.0-4.8) k/uL APTT (22.0-30.0) sec Potassium 6.0 H (3.5-5.1) mmol/L BUN 68 H (9-20) mg/dL Creatinine 2.80 H (0.66-1.25) mg/dL Glucose 144 H (74-99) mg/dL POC Glucose (mg/dL) (75-99) mg/dL Hemoglobin A1c 6.6 H (4.0-6.0) % Magnesium (1.6-2.3) mg/dL Iron (65-175) ug/dL TIBC (228-460) ug/dL AST (17-59) U/L Total Protein (6.3-8.2) g/dL Albumin (3.5-5.0) g/dL 05/22/18 05/22/18 05/22/18 Range/Units 10:53 16:03 16:03 RBC (4.30-5.90) m/uL Hgb (13.0-17.5) gm/dL Hct (39.0-53.0) % MCHC (31.0-37.0) g/dL Plt Count (150-450) k/uL Lymphocytes # (1.0-4.8) k/uL APTT 39.9 H (22.0-30.0) sec Potassium 6.0 H (3.5-5.1) mmol/L BUN (9-20) mg/dL Creatinine (0.66-1.25) mg/dL Glucose (74-99) mg/dL POC Glucose (mg/dL) (75-99) mg/dL Hemoglobin A1c (4.0-6.0) % Magnesium (1.6-2.3) mg/dL Iron 43 L (65-175) ug/dL TIBC 220 L (228-460) ug/dL AST (17-59) U/L Total Protein (6.3-8.2) g/dL Albumin (3.5-5.0) g/dL 05/22/18 05/22/18 05/22/18 Range/Units 16:38 18:52 20:12 RBC (4.30-5.90) m/uL Hgb (13.0-17.5) gm/dL Hct (39.0-53.0) % MCHC (31.0-37.0) g/dL Plt Count (150-450) k/uL Lymphocytes # (1.0-4.8) k/uL APTT 53.6 H (22.0-30.0) sec Potassium (3.5-5.1) mmol/L BUN (9-20) mg/dL Creatinine (0.66-1.25) mg/dL Glucose (74-99) mg/dL POC Glucose (mg/dL) 129 H 143 H (75-99) mg/dL Hemoglobin A1c (4.0-6.0) % Magnesium (1.6-2.3) mg/dL Iron (65-175) ug/dL TIBC (228-460) ug/dL AST (17-59) U/L Total Protein (6.3-8.2) g/dL Albumin (3.5-5.0) g/dL 05/22/18 05/23/18 05/23/18 Range/Units 22:17 05:34 05:34 RBC (4.30-5.90) m/uL Hgb (13.0-17.5) gm/dL Hct (39.0-53.0) % MCHC (31.0-37.0) g/dL Plt Count (150-450) k/uL Lymphocytes # (1.0-4.8) k/uL APTT 52.6 H (22.0-30.0) sec Potassium 5.6 H 5.6 H (3.5-5.1) mmol/L BUN 69 H (9-20) mg/dL Creatinine 2.82 H (0.66-1.25) mg/dL Glucose (74-99) mg/dL POC Glucose (mg/dL) (75-99) mg/dL Hemoglobin A1c (4.0-6.0) % Magnesium 2.5 H (1.6-2.3) mg/dL Iron (65-175) ug/dL TIBC (228-460) ug/dL AST 16 L (17-59) U/L Total Protein 5.4 L (6.3-8.2) g/dL Albumin 2.7 L (3.5-5.0) g/dL 05/23/18 Range/Units 05:34 RBC 3.25 L (4.30-5.90) m/uL Hgb 9.0 L (13.0-17.5) gm/dL Hct 29.5 L (39.0-53.0) % MCHC 30.7 L (31.0-37.0) g/dL Plt Count 143 L (150-450) k/uL Lymphocytes # 0.6 L (1.0-4.8) k/uL APTT (22.0-30.0) sec Potassium (3.5-5.1) mmol/L BUN (9-20) mg/dL Creatinine (0.66-1.25) mg/dL Glucose (74-99) mg/dL POC Glucose (mg/dL) (75-99) mg/dL Hemoglobin A1c (4.0-6.0) % Magnesium (1.6-2.3) mg/dL Iron (65-175) ug/dL TIBC (228-460) ug/dL AST (17-59) U/L Total Protein (6.3-8.2) g/dL Albumin (3.5-5.0) g/dL Microbiology - Last 24 Hours (Table) 05/21/18 23:50 Gram Stain - Preliminary Leg - Left Wound Culture - Preliminary 05/21/18 13:10 Blood Culture - Preliminary Blood No Growth after 24 hours Assessment and Plan Assessment: Assessment #1 congestive heart failure exacerbation secondary to diastole dysfunction #2 atrial fibrillation which is known to the patient #3 status post aortic valve replacement #4 history of stroke #5 multiple comorbid conditions Plan #1 continue IV anticoagulation. We'll consider oral anticoagulation #2 the IV Lasix has been managed by the nephrology team #3 continue monitor the kidney function and electrolytes #4 follow-up with the patient
--- NOTE | 2018-05-23 11:45 | P.PN ---
Subjective Patient is seen in follow-up for acute kidney injury. Renal function is stable with creatinine at 2.82 today. Potassium level is 5.6. Currently sitting up in bed. Denies chest pain or shortness of breath. Admits to good urine output. Maintain on IV heparin for A. fib. Heart rate controlled. Vital signs are stable. General: The patient appeared well nourished and normally developed. HEENT: Head exam is unremarkable. Neck is without jugular venous distension. LUNGS: Lungs are clear to auscultation and percussion. Breath sounds decreased. HEART: Rate and Rhythm are regular. First and second heart sounds normal. No murmurs, rubs or gallops. ABDOMEN: Abdominal exam reveals normal bowel sounds. Non-tender and non- distended. No evidence of peritonitis. EXTREMITITES: 1+ edema. Lower extremities wrapped. Objective - Vital Signs Vital signs: Vital Signs Temp 98 F 05/23/18 11:21 Pulse 66 05/23/18 11:21 Resp 18 05/23/18 11:21 BP 107/65 05/23/18 11:21 Pulse Ox 95 05/23/18 11:21 Intake & Output 05/22/18 05/23/18 05/23/18 18:59 06:59 18:59 Intake Total 720 Output Total 0 200 Balance 720 -200 Weight 117.934 kg 78.5 kg Intake: Oral 720 Output: Urine 0 200 Post Void Residual 0 Other: # Voids 0 1 - Labs CBC & Chem 7: 05/23/18 05:34 05/23/18 05:34 Labs: Abnormal Lab Results - Last 24 Hours (Table) 05/22/18 05/22/18 05/22/18 Range/Units 08:26 10:53 16:03 RBC (4.30-5.90) m/uL Hgb (13.0-17.5) gm/dL Hct (39.0-53.0) % MCHC (31.0-37.0) g/dL Plt Count (150-450) k/uL Lymphocytes # (1.0-4.8) k/uL APTT 39.9 H (22.0-30.0) sec Potassium 6.0 H (3.5-5.1) mmol/L BUN (9-20) mg/dL Creatinine (0.66-1.25) mg/dL POC Glucose (mg/dL) (75-99) mg/dL Hemoglobin A1c 6.6 H (4.0-6.0) % Magnesium (1.6-2.3) mg/dL Iron (65-175) ug/dL TIBC (228-460) ug/dL AST (17-59) U/L Total Protein (6.3-8.2) g/dL Albumin (3.5-5.0) g/dL 05/22/18 05/22/18 05/22/18 Range/Units 16:03 16:38 18:52 RBC (4.30-5.90) m/uL Hgb (13.0-17.5) gm/dL Hct (39.0-53.0) % MCHC (31.0-37.0) g/dL Plt Count (150-450) k/uL Lymphocytes # (1.0-4.8) k/uL APTT 53.6 H (22.0-30.0) sec Potassium (3.5-5.1) mmol/L BUN (9-20) mg/dL Creatinine (0.66-1.25) mg/dL POC Glucose (mg/dL) 129 H (75-99) mg/dL Hemoglobin A1c (4.0-6.0) % Magnesium (1.6-2.3) mg/dL Iron 43 L (65-175) ug/dL TIBC 220 L (228-460) ug/dL AST (17-59) U/L Total Protein (6.3-8.2) g/dL Albumin (3.5-5.0) g/dL 05/22/18 05/22/18 05/23/18 Range/Units 20:12 22:17 05:34 RBC (4.30-5.90) m/uL Hgb (13.0-17.5) gm/dL Hct (39.0-53.0) % MCHC (31.0-37.0) g/dL Plt Count (150-450) k/uL Lymphocytes # (1.0-4.8) k/uL APTT 52.6 H (22.0-30.0) sec Potassium 5.6 H (3.5-5.1) mmol/L BUN (9-20) mg/dL Creatinine (0.66-1.25) mg/dL POC Glucose (mg/dL) 143 H (75-99) mg/dL Hemoglobin A1c (4.0-6.0) % Magnesium (1.6-2.3) mg/dL Iron (65-175) ug/dL TIBC (228-460) ug/dL AST (17-59) U/L Total Protein (6.3-8.2) g/dL Albumin (3.5-5.0) g/dL 05/23/18 05/23/18 Range/Units 05:34 05:34 RBC 3.25 L (4.30-5.90) m/uL Hgb 9.0 L (13.0-17.5) gm/dL Hct 29.5 L (39.0-53.0) % MCHC 30.7 L (31.0-37.0) g/dL Plt Count 143 L (150-450) k/uL Lymphocytes # 0.6 L (1.0-4.8) k/uL APTT (22.0-30.0) sec Potassium 5.6 H (3.5-5.1) mmol/L BUN 69 H (9-20) mg/dL Creatinine 2.82 H (0.66-1.25) mg/dL POC Glucose (mg/dL) (75-99) mg/dL Hemoglobin A1c (4.0-6.0) % Magnesium 2.5 H (1.6-2.3) mg/dL Iron (65-175) ug/dL TIBC (228-460) ug/dL AST 16 L (17-59) U/L Total Protein 5.4 L (6.3-8.2) g/dL Albumin 2.7 L (3.5-5.0) g/dL Microbiology - Last 24 Hours (Table) 05/21/18 23:50 Gram Stain - Preliminary Leg - Left Wound Culture - Preliminary 05/21/18 13:10 Blood Culture - Preliminary Blood No Growth after 24 hours Assessment and Plan Plan: Assessment: 1. Acute kidney injury secondary to ATN secondary to hypotension. Patient was also taking lisinopril and diuretics at home. Creatinine 2.94 on admission. Stable at 2.82 today. Unclear as to what his baseline renal function is. No evidence of hydronephrosis noted on renal ultrasound. UA benign. 2. Hyperkalemia secondary to acute kidney injury and lisinopril. 3. Diabetes mellitus. 4. Anemia. Iron deficiency noted. 5. History of aortic valve replacement. 6. Atrial flutter maintained on IV heparin and Lopressor. 7. Lower extremity ulcerations maintained on antibiotics. Infectious disease following. 8. Hypotension. Better. Maintained on midodrine. 9. Diastolic CHF with mild to moderate tricuspid regurgitation. Plan: Lasix 40 mg IV once today. Encouraged oral intake. Low potassium diet. Repeat potassium level this evening. Ferrlecit 125 mg IV daily for 3 days. First dose today. Continue to monitor renal function and urine output.
[2018-05-23 11:48] LABS: Glucose,Whole Blood 128 mg/dL (75-99)
[2018-05-23] MEDS: HEPARIN SOD,PORK IN 0.45% NACL 25,000 UNIT in 0.45% NACL 1 250ML.BAG IV SCH (12:53)
[2018-05-23] MEDS: APIXABAN 2.5 MG TABLET PO SCH ×2 (12:56→20:13)
--- NOTE | 2018-05-23 14:10 | CDI ---
Documentation Clarification Form Date: 05/23/2018 2:00:54 PM From: Ina Black CCS, CCDS Admit Date: 05/21/2018 2:59:00 PM Patient Name: Kj Alarcon Visit Number: [id number] Discharge Date: ATTENTION: The Clinical Documentation Specialists (CDI) and [facility] Coding Staff appreciate your assistance in clarifying documentation. Please respond to the clarification below the line at the bottom and electronically sign. The CDI & [facility] Coding staff will review the response and follow-up if needed. Please note: Queries are made part of the Legal Health Record. If you have any questions, please contact the author of this message via ITS. Dr. Dwight Aguilera Per the ED EKG: Atrial flutter with variable AV block, left axis deviation, right bundle branch block, no ST segment elevation, rate of 93, QRS duration 148 , QTC 517. Per the History & Physical: EKG showing evidence of atrial flutter with variable AV block, patient denies having any history of atrial fibrillation or atrial flutter Per the 05/23 Cardiology progress note: Atrial fibrillation which is known to the patient HR: 58, 103 EKG: as above Home meds: Lipitor, Plavix, Carvedilol, Amitriptyline, Metformin, Zestril & Lasix Please clarify if the patient has been diagnosed with atrial fibrillation and/ or atrial flutter & please specify the type if known: Atrial Fibrillation o Chronic o Paroxysmal o Persistent Other, please specify Clinically unable to determine Atrial Flutter o Atypical (Type II) o Typical (Type I) Other, please specify Clinically unable to determine MTDD
[2018-05-23 16:17] LABS: Glucose,Whole Blood 167 mg/dL (75-99)
[2018-05-23] MEDS: CYCLOBENZAPRINE 10 MG TAB PO SCH (20:13)
[2018-05-23] MEDS: AMITRIPTYLINE HCL 10 MG TAB PO SCH (20:13)
[2018-05-23 21:03] LABS: Glucose,Whole Blood 123 mg/dL (75-99)
[2018-05-24] MEDS: PIPERACILLIN-TAZOBACTAM 3.375 GM in SODIUM CHLORIDE 0.9% 100 ML IVPB SCH ×4 (00:04→23:57)
[2018-05-24 05:29] LABS: Glucose,Whole Blood 154 mg/dL (75-99)
[2018-05-24] MEDS: MIDODRINE 5 MG TAB PO SCH ×2 (05:49→17:54)
[2018-05-24] MEDS: INSULIN ASPART 100 UNIT/ML 1 ML 10 ML VIAL SQ SCH ×4 (06:45→21:45)
[2018-05-24 06:53] LABS: Basophils % (A) 1 %; Eosinophils # (A) 0.2 k/uL (0-0.7); Eosinophils % (A) 4 %; HCT 29.4 % (39.0-53.0); HGB 9.3 gm/dL (13.0-17.5); Hypochromasia Slight; Lymphocytes # (A) 0.9 k/uL (1.0-4.8); Lymphocytes % (A) 20 %; MCH 28.7 pg (25.0-35.0); MCHC 31.8 g/dL (31.0-37.0); MCV 90.5 fL (80.0-100.0); Monocytes # (A) 0.2 k/uL (0-1.0); Monocytes % (A) 5 %; Neutrophils # (A) 3.1 k/uL (1.3-7.7); Neutrophils % (A) 67 %; Platelet Count 143 k/uL (150-450); RBC 3.25 m/uL (4.30-5.90); RDW 15.4 % (11.5-15.5); WBC 4.6 k/uL (3.8-10.6)
[2018-05-24 07:04] LABS: Albumin 2.7 g/dL (3.5-5.0); Calcium 8.5 mg/dL (8.4-10.2); Magnesium 2.5 mg/dL (1.6-2.3); Potassium 5.1 mmol/L (3.5-5.1); Total Bilirubin 0.9 mg/dL (0.2-1.3); Total Protein 5.5 g/dL (6.3-8.2)
--- NOTE | 2018-05-24 08:50 | P.PN ---
Subjective Progress Note Date: 05/24/18 Principal diagnosis: CHF This is a pleasant 82-year-old gentleman with a past medical history significant for valvular heart disease and status post aortic valve replacement using bioprosthetic valve, congestive heart failure secondary to diastolic dysfunction, as well as multiple comorbid conditions was admitted to the hospital with CHF exacerbation as well as atrial fibrillation with RVR which is new to the patient. On follow-up with the patient today, the patient is feeling slightly better. The shortness of breath is a slightly better. Is to have bilateral lower extremities edema which seems to be chronic. The heart rate still not well- controlled. I am going to increase the dose of metoprolol to 25 mg by mouth twice a day. He was started yesterday on oral anticoagulation with Eliquis. Objective - Vital Signs Vital signs: Vital Signs Temp 98.2 F 05/24/18 04:00 Pulse 105 H 05/24/18 04:00 Resp 20 05/24/18 04:00 BP 101/55 05/24/18 04:00 Pulse Ox 94 L 05/24/18 04:00 Intake & Output 05/23/18 05/24/18 05/24/18 18:59 06:59 18:59 Intake Total 360 Output Total 200 300 Balance 160 -300 Weight 84.5 kg Intake: Oral 360 Output: Urine 200 300 Other: # Voids 1 1 - Constitutional General appearance: Present: no acute distress - Respiratory Respiratory: bilateral: CTA - Cardiovascular Rhythm: irregularly irregular Heart sounds: normal: S1, S2 Abnormal Heart Sounds: Present: systolic murmur - Labs CBC & Chem 7: 05/24/18 06:21 05/24/18 06:21 Labs: Abnormal Lab Results - Last 24 Hours (Table) 05/23/18 05/23/18 05/23/18 Range/Units 11:38 16:11 21:02 RBC (4.30-5.90) m/uL Hgb (13.0-17.5) gm/dL Hct (39.0-53.0) % Plt Count (150-450) k/uL Lymphocytes # (1.0-4.8) k/uL APTT (22.0-30.0) sec BUN (9-20) mg/dL Creatinine (0.66-1.25) mg/dL Glucose (74-99) mg/dL POC Glucose (mg/dL) 128 H 167 H 123 H (75-99) mg/dL Magnesium (1.6-2.3) mg/dL Total Protein (6.3-8.2) g/dL Albumin (3.5-5.0) g/dL 05/24/18 05/24/18 05/24/18 Range/Units 05:28 06:21 06:21 RBC 3.25 L (4.30-5.90) m/uL Hgb 9.3 L (13.0-17.5) gm/dL Hct 29.4 L (39.0-53.0) % Plt Count 143 L (150-450) k/uL Lymphocytes # 0.9 L (1.0-4.8) k/uL APTT 40.6 H (22.0-30.0) sec BUN (9-20) mg/dL Creatinine (0.66-1.25) mg/dL Glucose (74-99) mg/dL POC Glucose (mg/dL) 154 H (75-99) mg/dL Magnesium (1.6-2.3) mg/dL Total Protein (6.3-8.2) g/dL Albumin (3.5-5.0) g/dL 05/24/18 Range/Units 06:21 RBC (4.30-5.90) m/uL Hgb (13.0-17.5) gm/dL Hct (39.0-53.0) % Plt Count (150-450) k/uL Lymphocytes # (1.0-4.8) k/uL APTT (22.0-30.0) sec BUN 68 H (9-20) mg/dL Creatinine 2.76 H (0.66-1.25) mg/dL Glucose 136 H (74-99) mg/dL POC Glucose (mg/dL) (75-99) mg/dL Magnesium 2.5 H (1.6-2.3) mg/dL Total Protein 5.5 L (6.3-8.2) g/dL Albumin 2.7 L (3.5-5.0) g/dL Microbiology - Last 24 Hours (Table) 05/21/18 13:10 Blood Culture - Preliminary Blood No Growth after 48 hours Assessment and Plan Assessment: Assessment #1 congestive heart failure exacerbation secondary to diastole dysfunction #2 atypical atrial flutter with variable block #3 status post aortic valve replacement #4 history of stroke #5 multiple comorbid conditions Plan #1 continue the current medical regimen including oral anticoagulation #2 follow-up with echocardiogram #3 continue monitor the kidney function and electrolytes #4 follow-up with the patient
[2018-05-24] MEDS: CLOPIDOGREL 75 MG TAB PO SCH (09:48)
[2018-05-24] MEDS: APIXABAN 2.5 MG TABLET PO SCH ×2 (09:49→21:44)
[2018-05-24] MEDS: METOPROLOL TARTRATE 25 MG TAB PO SCH ×2 (09:49→21:45)
[2018-05-24] MEDS: MUPIROCIN 2% OINT 22 GM TUBE TOPICAL SCH (09:49)
[2018-05-24] MEDS: FAMOTIDINE 20 MG TAB PO SCH (09:49)
[2018-05-24] MEDS: ZINC OXIDE 20% OINT 28.4 GM TUBE TOPICAL SCH ×3 (09:49→21:45)
--- NOTE | 2018-05-24 11:08 | ECHOF ---
Referral Reason:assess lvf MEASUREMENTS -------- HEIGHT: 182.9 cm WEIGHT: 117.9 kg BP: IVSd: 1.5 cm (0.6 - 1.1) LVIDd: 2.7 cm (3.9 - 5.3) LVPWd: 1.8 cm (0.6 - 1.1) IVSs: 2.0 cm LVIDs: 1.6 cm LVPWs: 1.7 cm LAESV Index (A-L): 28.67 ml/m Ao Diam: 2.5 cm (2.0 - 3.7) AV Cusp: 1.4 cm (1.5 - 2.6) LA Diam: 4.7 cm (2.7 - 3.8) MV EXCURSION: 10.542 mm (> 18.000) MV EF SLOPE: 44 mm/s (70 - 150) EPSS: 1.4 cm MV E Calvin: 1.69 m/s MV DecT: 301 ms MV A Calvin: 1.30 m/s MV E/A Ratio: 1.30 AV maxP.27 mmHg AV meanP.77 mmHg RAP: 5.00 mmHg RVSP: 39.59 mmHg FINDINGS -------- Sinus rhythm. This was a technically good study. The left ventricular size is normal. There is moderate concentric left ventricular hypertrophy. O verall left ventricular systolic function is normal with, an EF between 55 - 60 %. The right ventricle is normal in size and function. The left atrium is moderately dilated. The right atrium is normal in size. Trace amount of aortic regurgitation. Peak/mean gradient across the Aortic Valve is 29.27mmHg / 21 .77mmHg. Normally functioning bioprosthetic valve. The mitral valve leaflets are moderately thickened. Moderate mitral annular calcification present. Qtyn-fj-agytmwzl mitral regurgitation is present. The peak and mean MV gradients are 16.05mmHg 7 .75mmHg as measured by doppler. Mgim-tp-sstkzjpi mitral stenosis. Mild tricuspid regurgitation present. There is mild pulmonary hypertension. The right ventricular systolic pressure, as measured by Doppler, is 39.59mmHg. Pulmonic valve appears structurally normal. The aortic root size is normal. IVC Not well visulized. The pericardium is normal. CONCLUSIONS -------- 1. Sinus rhythm. 2. This was a technically good study. 3. The left ventricular size is normal. 4. There is moderate concentric left ventricular hypertrophy. 5. Overall left ventricular systolic function is normal with, an EF between 55 - 60 %. 6. The right ventricle is normal in size and function. 7. The left atrium is moderately dilated. 8. The right atrium is normal in size. 9. Trace amount of aortic regurgitation. 10. Peak/mean gradient across the Aortic Valve is 29.27mmHg / 21.77mmHg. 11. Normally functioning bioprosthetic valve. 12. The mitral valve leaflets are moderately thickened. 13. Moderate mitral annular calcification present. 14. Ezso-hw-wyrzramj mitral regurgitation is present. 15. The peak and mean MV gradients are 16.05mmHg 7.75mmHg as measured by doppler. 16. Ycnx-en-omacgjsm mitral stenosis. 17. Mild tricuspid regurgitation present. 18. There is mild pulmonary hypertension. 19. The right ventricular systolic pressure, as measured by Doppler, is 39.59mmHg. 20. Pulmonic valve appears structurally normal. 21. The aortic root size is normal. 22. IVC Not well visulized. 23. The pericardium is normal. GLASS VIAL FILLER: Elizabeth Perez RDCS
[2018-05-24 12:18] LABS: Glucose,Whole Blood 146 mg/dL (75-99)
--- NOTE | 2018-05-24 12:18 | P.PN ---
Subjective Patient is seen in follow-up for acute kidney injury. Renal function is stable. Potassium level is 5.1. Currently sitting up in bed. Denies chest pain or shortness of breath. Admits to good urine output. Heart rate controlled. Vital signs are stable. General: The patient appeared well nourished and normally developed. HEENT: Head exam is unremarkable. Neck is without jugular venous distension. LUNGS: Lungs are clear to auscultation and percussion. Breath sounds decreased. HEART: Rate and Rhythm are regular. First and second heart sounds normal. No murmurs, rubs or gallops. ABDOMEN: Abdominal exam reveals normal bowel sounds. Non-tender and non- distended. No evidence of peritonitis. EXTREMITITES: Trace edema. Lower extremities wrapped. Objective - Vital Signs Vital signs: Vital Signs Temp 97.7 F 05/24/18 12:00 Pulse 92 05/24/18 12:00 Resp 20 05/24/18 12:00 BP 98/70 05/24/18 12:00 Pulse Ox 95 05/24/18 12:00 Intake & Output 05/23/18 05/24/18 05/24/18 18:59 06:59 18:59 Intake Total 360 180 Output Total 200 300 300 Balance 160 -300 -120 Weight 84.5 kg Intake: Oral 360 180 Output: Urine 200 300 300 Other: # Voids 1 1 - Labs CBC & Chem 7: 05/24/18 06:21 05/24/18 06:21 Labs: Abnormal Lab Results - Last 24 Hours (Table) 05/23/18 05/23/18 05/24/18 Range/Units 16:11 21:02 05:28 RBC (4.30-5.90) m/uL Hgb (13.0-17.5) gm/dL Hct (39.0-53.0) % Plt Count (150-450) k/uL Lymphocytes # (1.0-4.8) k/uL APTT (22.0-30.0) sec BUN (9-20) mg/dL Creatinine (0.66-1.25) mg/dL Glucose (74-99) mg/dL POC Glucose (mg/dL) 167 H 123 H 154 H (75-99) mg/dL Magnesium (1.6-2.3) mg/dL Total Protein (6.3-8.2) g/dL Albumin (3.5-5.0) g/dL 05/24/18 05/24/18 05/24/18 Range/Units 06:21 06:21 06:21 RBC 3.25 L (4.30-5.90) m/uL Hgb 9.3 L (13.0-17.5) gm/dL Hct 29.4 L (39.0-53.0) % Plt Count 143 L (150-450) k/uL Lymphocytes # 0.9 L (1.0-4.8) k/uL APTT 40.6 H (22.0-30.0) sec BUN 68 H (9-20) mg/dL Creatinine 2.76 H (0.66-1.25) mg/dL Glucose 136 H (74-99) mg/dL POC Glucose (mg/dL) (75-99) mg/dL Magnesium 2.5 H (1.6-2.3) mg/dL Total Protein 5.5 L (6.3-8.2) g/dL Albumin 2.7 L (3.5-5.0) g/dL Microbiology - Last 24 Hours (Table) 05/21/18 23:50 Gram Stain - Final Leg - Left Wound Culture - Final 05/21/18 13:10 Blood Culture - Preliminary Blood No Growth after 48 hours Assessment and Plan Plan: Assessment: 1. Acute kidney injury secondary to ATN secondary to hypotension. Patient was also taking lisinopril and diuretics at home. Creatinine 2.94 on admission. Renal function stable. Unclear as to what his baseline renal function is. No evidence of hydronephrosis noted on renal ultrasound. UA benign. 2. Hyperkalemia secondary to acute kidney injury and lisinopril. Better. 3. Diabetes mellitus. 4. Anemia. Iron deficiency noted. 5. History of aortic valve replacement. 6. Atrial flutter maintained on Lopressor. Heart rate controlled. 7. Lower extremity ulcerations maintained on antibiotics. Infectious disease following. 8. Hypotension. Better. Maintained on midodrine. 9. Diastolic CHF with mild to moderate tricuspid regurgitation. Plan: Status post IV Lasix yesterday. Hold today. Encouraged oral intake. Low potassium diet. Ferrlecit 125 mg IV daily for 3 days. Second dose today. Continue to monitor renal function and urine output.
--- NOTE | 2018-05-24 12:53 | P.PN ---
Subjective Progress Note Date: 05/24/18 Kj Alarcon is an 82-year-old male patient of Dr. Jayna Emerson who presented to [facility] emergency room with multiple medical problems, patient was complaining of increasing weakness, and hypotension, he had multiple falls at home, requiring intervention by the fire department as he was unable to stand up on his own and his is unable to help him up, patient had low blood pressure on the day of admission and was told by his visiting nurse to go to emergency room. Patient states that he moved to this area 1-1/2 years ago from [facility], he has been following with Dr. Jayna Emerson since he came to [facility] he does not see any other specialist he has a visiting nurse who goes to his home and help with lower extremity ulcers management he has an Unna boot on his left lower extremity. Patient has a known history of congestive heart failure, COPD, hypertension, hyperlipidemia, coronary artery disease with previous history of angioplasty and stent placement, history of mitral valve replacement with bovine valve, history of partial gastric resection due to bleeding ulcers, and history of right total knee arthroplasty. Patient used to smoke but quit in 1989 he started smoking as a teenager. On 05/22/2018 patient is alert and oriented 3 in no apparent distress he is sitting up at the edge of the bed his shortness of breath is slightly better he has occasional cough otherwise he denies any complaints there is no fever or chills no headache or dizziness no chest pain no nausea or vomiting no abdominal pain no diarrhea and no urinary symptoms. 05/23/2018 patient lying in bed comfortably. Denies any shortness of breath. Son with lower extremity still having lower extremity edema. Legs are is wrapped. Patient is complaining of discomfort on his bottom. Evidence of the dermatitis and small coccyx stage II ulcer. Zinc oxide ordered. Hemoglobin 9 creatinine 2.80-2.82. Potassium is 5.6 iron low at 43 05/24/2018 patient lying in bed comfortably. Reports some improvement in his shortness of breath. Still having lower extremity edema. Patient did receive a dose of IV Lasix yesterday was started on IV iron per nephrology. Metoprolol was increased to 25 mg twice a day by cardiology to for better heart rate control. Also started on Eliquis for anticoagulation for his atrial fibrillation. Hemoglobin is up to 9.3 creatinine is down to 2.76 potassium down at 5.1. Patient denies any chest pain. Denies any nausea or vomiting. Reports having bowel movements. Denies any difficulty urinating. Objective - Vital Signs Vital signs: Vital Signs Temp 97.7 F 05/24/18 12:00 Pulse 92 05/24/18 12:00 Resp 20 05/24/18 12:00 BP 98/70 05/24/18 12:00 Pulse Ox 95 05/24/18 12:00 Intake & Output 05/23/18 05/24/18 05/24/18 18:59 06:59 18:59 Intake Total 360 180 Output Total 200 300 300 Balance 160 -300 -120 Weight 84.5 kg Intake: Oral 360 180 Output: Urine 200 300 300 Other: # Voids 1 1 - Exam Head normocephalic Neck supple Lungs clear to auscultation bilaterally no wheezing or crackles Heart irregular. A. fib on monitor Abdomen is soft nontender nondistended positive bowel sounds no hepatosplenomegaly Extremities edema bilateral lower extremities. Legs are Rosalio wrapped Neuro alert and orientated to 3 Skin exam buttocks area is red, stage II ulcer on the coccyx area - Labs CBC & Chem 7: 05/24/18 06:21 05/24/18 06:21 Labs: Abnormal Lab Results - Last 24 Hours (Table) 05/23/18 05/23/18 05/24/18 Range/Units 16:11 21:02 05:28 RBC (4.30-5.90) m/uL Hgb (13.0-17.5) gm/dL Hct (39.0-53.0) % Plt Count (150-450) k/uL Lymphocytes # (1.0-4.8) k/uL APTT (22.0-30.0) sec BUN (9-20) mg/dL Creatinine (0.66-1.25) mg/dL Glucose (74-99) mg/dL POC Glucose (mg/dL) 167 H 123 H 154 H (75-99) mg/dL Magnesium (1.6-2.3) mg/dL Total Protein (6.3-8.2) g/dL Albumin (3.5-5.0) g/dL 05/24/18 05/24/18 05/24/18 Range/Units 06:21 06:21 06:21 RBC 3.25 L (4.30-5.90) m/uL Hgb 9.3 L (13.0-17.5) gm/dL Hct 29.4 L (39.0-53.0) % Plt Count 143 L (150-450) k/uL Lymphocytes # 0.9 L (1.0-4.8) k/uL APTT 40.6 H (22.0-30.0) sec BUN 68 H (9-20) mg/dL Creatinine 2.76 H (0.66-1.25) mg/dL Glucose 136 H (74-99) mg/dL POC Glucose (mg/dL) (75-99) mg/dL Magnesium 2.5 H (1.6-2.3) mg/dL Total Protein 5.5 L (6.3-8.2) g/dL Albumin 2.7 L (3.5-5.0) g/dL 05/24/18 Range/Units 12:10 RBC (4.30-5.90) m/uL Hgb (13.0-17.5) gm/dL Hct (39.0-53.0) % Plt Count (150-450) k/uL Lymphocytes # (1.0-4.8) k/uL APTT (22.0-30.0) sec BUN (9-20) mg/dL Creatinine (0.66-1.25) mg/dL Glucose (74-99) mg/dL POC Glucose (mg/dL) 146 H (75-99) mg/dL Magnesium (1.6-2.3) mg/dL Total Protein (6.3-8.2) g/dL Albumin (3.5-5.0) g/dL Microbiology - Last 24 Hours (Table) 05/21/18 23:50 Gram Stain - Final Leg - Left Wound Culture - Final 05/21/18 13:10 Blood Culture - Preliminary Blood No Growth after 48 hours Assessment and Plan Assessment: #1 acute on chronic diastolic congestive heart failure exacerbation. Patient was given 1 dose of IV Lasix yesterday. Not on ROSALIO inhibitor due to hypotension and renal failure. Echo shows an EF of 55-60% mild to moderate tricuspid regurgitation. Cardiology and nephrology following #2 atrial flutter: Cardiology is increased the metoprolol to 25 mg daily and started patient on Eliquis for anticoagulation #3 acute kidney injury secondary to ATN due to hypotension and medications. Patient had been on ROSALIO inhibitor and diuretics at home. Nephrology is following. No evidence of hydronephrosis on renal ultrasound. #4 hyperkalemia secondary to acute kidney injury and lisinopril. Improved with Kayexalate #5 history of aortic valve replacement #6 iron deficiency anemia: Hemoglobin 9. Total iron 43. Nephrology has ordered IV iron for 3 days #7 bilateral lower extremity cellulitis . Followed by infectious disease. Continue current antibiotics. Doppler negative for DVT #8 Severe protein calorie malnutrition add Glucerna shakes #9 elevated lactic acid due to sepsis present on admission #10 generalized weakness and multiple falls due to CHF, acute kidney injury and infection #11 diabetes mellitus type 2 A1c 6.6. 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 Keep pressure off the area Consult PT GI prophylaxis Pepcid and DVT prophylaxis Eliquis I performed an examination of the patient and discussed their management with the physician Anesthesiology Faculty. I have reviewed the Physician Anesthesiology Faculty's notes and agree with the documented findings and plan of care
[2018-05-24 15:08] VITALS: BMI 25.9
[2018-05-24 16:55] LABS: Glucose,Whole Blood 132 mg/dL (75-99)
[2018-05-24 20:45] LABS: Glucose,Whole Blood 188 mg/dL (75-99)
[2018-05-24] MEDS: AMITRIPTYLINE HCL 10 MG TAB PO SCH (21:44)
[2018-05-24] MEDS: CYCLOBENZAPRINE 10 MG TAB PO SCH (21:44)
[2018-05-25 06:03] LABS: Glucose,Whole Blood 130 mg/dL (75-99)
[2018-05-25] MEDS: INSULIN ASPART 100 UNIT/ML 1 ML 10 ML VIAL SQ SCH ×4 (06:13→21:08)
[2018-05-25 06:20] LABS: HGB 9.9 gm/dL (13.0-17.5); Hypochromasia Slight; MCH 28.3 pg (25.0-35.0); MCHC 31.1 g/dL (31.0-37.0); MCV 91.1 fL (80.0-100.0); Mean Platelet Volume 7.6; Platelet Count 145 k/uL (150-450); RBC 3.51 m/uL (4.30-5.90); RDW 15.8 % (11.5-15.5); WBC 5.9 k/uL (3.8-10.6)
[2018-05-25] MEDS: MIDODRINE 5 MG TAB PO SCH ×2 (06:34→17:15)
[2018-05-25 06:36] LABS: Albumin 2.8 g/dL (3.5-5.0); Calcium 8.9 mg/dL (8.4-10.2); Magnesium 2.5 mg/dL (1.6-2.3); Potassium 4.6 mmol/L (3.5-5.1); Total Protein 5.8 g/dL (6.3-8.2)
[2018-05-25 08:38] LABS: Band Neutrophils % 1 %; Eosinophils # (M) 0.35 k/uL (0-0.7); Lymphocytes # (M) 1.12 k/uL (1.0-4.8); Monocytes # (M) 0.47 k/uL (0-1.0); Neutrophils % (M) 67 %; Nucleated Red Blood Cells 0 /100 WBC (0-0); Total Cells Counted 200
[2018-05-25 08:46] LABS: Anisocytosis (M) Present; Polychromasia Present
--- NOTE | 2018-05-25 08:47 | P.PN ---
Subjective Patient is seen in follow-up for acute kidney injury. Renal function is a little better today. Potassium level has normalized. Currently sitting up in bed. Denies chest pain or shortness of breath. Admits to good urine output. Heart rate controlled. Vital signs are stable. General: The patient appeared well nourished and normally developed. HEENT: Head exam is unremarkable. Neck is without jugular venous distension. LUNGS: Lungs are clear to auscultation and percussion. Breath sounds decreased. HEART: Rate and Rhythm are regular. First and second heart sounds normal. No murmurs, rubs or gallops. ABDOMEN: Abdominal exam reveals normal bowel sounds. Non-tender and non- distended. No evidence of peritonitis. EXTREMITITES: Trace edema. Lower extremities wrapped. Objective - Vital Signs Vital signs: Vital Signs Temp 97.5 F L 05/24/18 20:00 Pulse 98 05/25/18 04:00 Resp 18 05/25/18 04:00 BP 112/71 05/25/18 04:00 Pulse Ox 96 05/25/18 04:00 Intake & Output 05/24/18 05/25/18 05/25/18 18:59 06:59 18:59 Intake Total 950 Output Total 550 Balance 400 Weight 84.5 kg 84.5 kg Intake: Intake, IV Titration 100 Amount Piperacillin-Tazobactam 3 100 .375 gm In Sodium Chloride 0.9% 100 ml @ 25 mls/hr IVPB Q8HR [facility] Rx# :[id number] Oral 850 Output: Urine 550 Other: Voiding Method Urinal Urinal Diaper # Voids 1 # Bowel Movements 1 - Labs CBC & Chem 7: 05/25/18 05:52 05/25/18 05:52 Labs: Abnormal Lab Results - Last 24 Hours (Table) 05/24/18 05/24/18 05/24/18 Range/Units 12:10 16:32 20:43 RBC (4.30-5.90) m/uL Hgb (13.0-17.5) gm/dL Hct (39.0-53.0) % RDW (11.5-15.5) % Plt Count (150-450) k/uL BUN (9-20) mg/dL Creatinine (0.66-1.25) mg/dL Glucose (74-99) mg/dL POC Glucose (mg/dL) 146 H 132 H 188 H (75-99) mg/dL Magnesium (1.6-2.3) mg/dL Total Protein (6.3-8.2) g/dL Albumin (3.5-5.0) g/dL 05/25/18 05/25/18 05/25/18 Range/Units 05:52 05:52 06:01 RBC 3.51 L (4.30-5.90) m/uL Hgb 9.9 L (13.0-17.5) gm/dL Hct 32.0 L (39.0-53.0) % RDW 15.8 H (11.5-15.5) % Plt Count 145 L (150-450) k/uL BUN 64 H (9-20) mg/dL Creatinine 2.58 H (0.66-1.25) mg/dL Glucose 126 H (74-99) mg/dL POC Glucose (mg/dL) 130 H (75-99) mg/dL Magnesium 2.5 H (1.6-2.3) mg/dL Total Protein 5.8 L (6.3-8.2) g/dL Albumin 2.8 L (3.5-5.0) g/dL Microbiology - Last 24 Hours (Table) 05/21/18 13:10 Blood Culture - Preliminary Blood No Growth after 72 hours 05/21/18 23:50 Gram Stain - Final Leg - Left Wound Culture - Final Assessment and Plan Plan: Assessment: 1. Acute kidney injury secondary to ATN secondary to hypotension. Patient was also taking lisinopril and diuretics at home. Creatinine 2.94 on admission. Renal function improved since admission. Unclear as to what his baseline renal function is. No evidence of hydronephrosis noted on renal ultrasound. UA benign. 2. Hyperkalemia secondary to acute kidney injury and lisinopril. Better. 3. Diabetes mellitus. 4. Anemia. Iron deficiency noted. 5. History of aortic valve replacement. 6. Atrial flutter maintained on Lopressor. Heart rate controlled. 7. Lower extremity ulcerations maintained on antibiotics. Infectious disease following. 8. Hypotension. Better. Maintained on midodrine. 9. Diastolic CHF with mild to moderate tricuspid regurgitation. Plan: Continue to hold diuretics. Encouraged oral intake. Low potassium diet. Ferrlecit 125 mg IV daily for 3 days. Third dose today. Continue to monitor renal function and urine output.
--- NOTE | 2018-05-25 09:19 | P.PN ---
Subjective Progress Note Date: 05/25/18 Principal diagnosis: CHF This is a pleasant 82-year-old gentleman with a past medical history significant for valvular heart disease and status post aortic valve replacement using bioprosthetic valve, congestive heart failure secondary to diastolic dysfunction, as well as multiple comorbid conditions was admitted to the hospital with CHF exacerbation as well as atrial fibrillation with RVR which is new to the patient. On follow-up with the patient today, May 252018 the patient is feeling slightly better. The shortness of breath is a slightly better. Is to have bilateral lower extremities edema which seems to be chronic. The heart rate still not well-controlled. I am going to increase the dose of metoprolol to 25 mg by mouth 3 times a day. He was started yesterday on oral anticoagulation with Eliquis. Objective - Vital Signs Vital signs: Vital Signs Temp 98.1 F 05/25/18 08:00 Pulse 113 H 05/25/18 08:00 Resp 17 05/25/18 08:00 BP 108/72 05/25/18 08:00 Pulse Ox 92 L 05/25/18 08:00 Intake & Output 05/24/18 05/25/18 05/25/18 18:59 06:59 18:59 Intake Total 950 260 Output Total 550 Balance 400 260 Weight 84.5 kg 84.5 kg Intake: Intake, IV Titration 100 Amount Piperacillin-Tazobactam 3 100 .375 gm In Sodium Chloride 0.9% 100 ml @ 25 mls/hr IVPB Q8HR [facility] Rx# :[id number] Oral 850 260 Output: Urine 550 Other: Voiding Method Urinal Urinal Urinal Diaper Diaper # Voids 1 # Bowel Movements 1 - Constitutional General appearance: Present: no acute distress - Respiratory Respiratory: bilateral: diminished - Cardiovascular Rhythm: irregularly irregular Heart sounds: normal: S1, S2 - Labs CBC & Chem 7: 05/25/18 05:52 05/25/18 05:52 Labs: Abnormal Lab Results - Last 24 Hours (Table) 05/24/18 05/24/18 05/24/18 Range/Units 12:10 16:32 20:43 RBC (4.30-5.90) m/uL Hgb (13.0-17.5) gm/dL Hct (39.0-53.0) % RDW (11.5-15.5) % Plt Count (150-450) k/uL BUN (9-20) mg/dL Creatinine (0.66-1.25) mg/dL Glucose (74-99) mg/dL POC Glucose (mg/dL) 146 H 132 H 188 H (75-99) mg/dL Magnesium (1.6-2.3) mg/dL Total Protein (6.3-8.2) g/dL Albumin (3.5-5.0) g/dL 05/25/18 05/25/18 05/25/18 Range/Units 05:52 05:52 06:01 RBC 3.51 L (4.30-5.90) m/uL Hgb 9.9 L (13.0-17.5) gm/dL Hct 32.0 L (39.0-53.0) % RDW 15.8 H (11.5-15.5) % Plt Count 145 L (150-450) k/uL BUN 64 H (9-20) mg/dL Creatinine 2.58 H (0.66-1.25) mg/dL Glucose 126 H (74-99) mg/dL POC Glucose (mg/dL) 130 H (75-99) mg/dL Magnesium 2.5 H (1.6-2.3) mg/dL Total Protein 5.8 L (6.3-8.2) g/dL Albumin 2.8 L (3.5-5.0) g/dL Microbiology - Last 24 Hours (Table) 05/21/18 13:10 Blood Culture - Preliminary Blood No Growth after 72 hours 05/21/18 23:50 Gram Stain - Final Leg - Left Wound Culture - Final Assessment and Plan Assessment: Assessment #1 congestive heart failure exacerbation secondary to diastole dysfunction #2 atypical atrial flutter with variable block #3 status post aortic valve replacement #4 history of stroke #5 multiple comorbid conditions Plan #1 continue the current medical regimen including oral anticoagulation #2 continue oral anticoagulation #3 possible discharge in the next 24 hour
[2018-05-25] MEDS: FAMOTIDINE 20 MG TAB PO SCH (09:57)
[2018-05-25] MEDS: APIXABAN 2.5 MG TABLET PO SCH ×2 (09:57→21:04)
[2018-05-25] MEDS: PIPERACILLIN-TAZOBACTAM 3.375 GM in SODIUM CHLORIDE 0.9% 100 ML IVPB SCH ×3 (09:58→23:17)
[2018-05-25] MEDS: CLOPIDOGREL 75 MG TAB PO SCH (09:58)
[2018-05-25] MEDS: ZINC OXIDE 20% OINT 28.4 GM TUBE TOPICAL SCH ×3 (09:58→21:04)
[2018-05-25] MEDS: MUPIROCIN 2% OINT 22 GM TUBE TOPICAL SCH (09:58)
[2018-05-25] MEDS: METOPROLOL TARTRATE 25 MG TAB PO SCH ×4 (10:02→21:03)
--- NOTE | 2018-05-25 10:02 | P.PN ---
Subjective Progress Note Date: 05/25/18 Kj Alarcon is an 82-year-old male patient of Dr. Jayna Emerson who presented to [facility] emergency room with multiple medical problems, patient was complaining of increasing weakness, and hypotension, he had multiple falls at home, requiring intervention by the fire department as he was unable to stand up on his own and his is unable to help him up, patient had low blood pressure on the day of admission and was told by his visiting nurse to go to emergency room. Patient states that he moved to this area 1-1/2 years ago from [facility], he has been following with Dr. Jayna Emerson since he came to [facility] he does not see any other specialist he has a visiting nurse who goes to his home and help with lower extremity ulcers management he has an Unna boot on his left lower extremity. Patient has a known history of congestive heart failure, COPD, hypertension, hyperlipidemia, coronary artery disease with previous history of angioplasty and stent placement, history of mitral valve replacement with bovine valve, history of partial gastric resection due to bleeding ulcers, and history of right total knee arthroplasty. Patient used to smoke but quit in 1989 he started smoking as a teenager. On 05/22/2018 patient is alert and oriented 3 in no apparent distress he is sitting up at the edge of the bed his shortness of breath is slightly better he has occasional cough otherwise he denies any complaints there is no fever or chills no headache or dizziness no chest pain no nausea or vomiting no abdominal pain no diarrhea and no urinary symptoms. 05/23/2018 patient lying in bed comfortably. Denies any shortness of breath. Son with lower extremity still having lower extremity edema. Legs are is wrapped. Patient is complaining of discomfort on his bottom. Evidence of the dermatitis and small coccyx stage II ulcer. Zinc oxide ordered. Hemoglobin 9 creatinine 2.80-2.82. Potassium is 5.6 iron low at 43 05/24/2018 patient lying in bed comfortably. Reports some improvement in his shortness of breath. Still having lower extremity edema. Patient did receive a dose of IV Lasix yesterday was started on IV iron per nephrology. Metoprolol was increased to 25 mg twice a day by cardiology to for better heart rate control. Also started on Eliquis for anticoagulation for his atrial fibrillation. Hemoglobin is up to 9.3 creatinine is down to 2.76 potassium down at 5.1. Patient denies any chest pain. Denies any nausea or vomiting. Reports having bowel movements. Denies any difficulty urinating. On 05/25/2018 patient is alert and oriented 3 in no apparent distress, he was seen and examined on the telemetry floor, he is mostly bedridden, he is able to pivot from his bed to a chair with a walker and with help of 1-2 persons, there is no fever or chills no headache or dizziness no chest pain, he has shortness of breath with any activity, no cough no nausea or vomiting no abdominal pain no diarrhea and no urinary symptoms. Objective - Vital Signs Vital signs: Vital Signs Temp 98.1 F 05/25/18 08:00 Pulse 113 H 05/25/18 08:00 Resp 17 05/25/18 08:00 BP 108/72 05/25/18 08:00 Pulse Ox 92 L 05/25/18 08:00 Intake & Output 05/24/18 05/25/18 05/25/18 18:59 06:59 18:59 Intake Total 950 260 Output Total 550 Balance 400 260 Weight 84.5 kg 84.5 kg Intake: Intake, IV Titration 100 Amount Piperacillin-Tazobactam 3 100 .375 gm In Sodium Chloride 0.9% 100 ml @ 25 mls/hr IVPB Q8HR [facility] Rx# :[id number] Oral 850 260 Output: Urine 550 Other: Voiding Method Urinal Urinal Urinal Diaper Diaper # Voids 1 # Bowel Movements 1 - Exam Head normocephalic Neck supple Lungs clear to auscultation bilaterally no wheezing or crackles Heart irregular. A. fib on monitor Abdomen is soft nontender nondistended positive bowel sounds no hepatosplenomegaly Extremities edema bilateral lower extremities. Legs are Rosalio wrapped Neuro alert and orientated to 3 Skin exam buttocks area is red, stage II ulcer on the coccyx area - Labs CBC & Chem 7: 05/25/18 05:52 05/25/18 05:52 Labs: Abnormal Lab Results - Last 24 Hours (Table) 05/24/18 05/24/18 05/24/18 Range/Units 12:10 16:32 20:43 RBC (4.30-5.90) m/uL Hgb (13.0-17.5) gm/dL Hct (39.0-53.0) % RDW (11.5-15.5) % Plt Count (150-450) k/uL BUN (9-20) mg/dL Creatinine (0.66-1.25) mg/dL Glucose (74-99) mg/dL POC Glucose (mg/dL) 146 H 132 H 188 H (75-99) mg/dL Magnesium (1.6-2.3) mg/dL Total Protein (6.3-8.2) g/dL Albumin (3.5-5.0) g/dL 05/25/18 05/25/18 05/25/18 Range/Units 05:52 05:52 06:01 RBC 3.51 L (4.30-5.90) m/uL Hgb 9.9 L (13.0-17.5) gm/dL Hct 32.0 L (39.0-53.0) % RDW 15.8 H (11.5-15.5) % Plt Count 145 L (150-450) k/uL BUN 64 H (9-20) mg/dL Creatinine 2.58 H (0.66-1.25) mg/dL Glucose 126 H (74-99) mg/dL POC Glucose (mg/dL) 130 H (75-99) mg/dL Magnesium 2.5 H (1.6-2.3) mg/dL Total Protein 5.8 L (6.3-8.2) g/dL Albumin 2.8 L (3.5-5.0) g/dL Microbiology - Last 24 Hours (Table) 05/21/18 13:10 Blood Culture - Preliminary Blood No Growth after 72 hours 05/21/18 23:50 Gram Stain - Final Leg - Left Wound Culture - Final Assessment and Plan Plan: #1 acute on chronic diastolic congestive heart failure exacerbation. Patient was given 1 dose of IV Lasix yesterday. Not on ROSALIO inhibitor due to hypotension and renal failure. Echo shows an EF of 55-60% mild to moderate tricuspid regurgitation. Cardiology and nephrology following #2 atrial flutter: Cardiology is increased the metoprolol to 25 mg daily and started patient on Eliquis for anticoagulation #3 acute kidney injury secondary to ATN due to hypotension and medications. Patient had been on ROSALIO inhibitor and diuretics at home. Nephrology is following. No evidence of hydronephrosis on renal ultrasound. Creatinine on presentation 2.94 improved today to 2.58 #4 hyperkalemia secondary to acute kidney injury and lisinopril. Improved with Kayexalate #5 history of aortic valve replacement #6 iron deficiency anemia: Hemoglobin 9.9 Total iron 43. Nephrology has ordered IV iron for 3 days #7 bilateral lower extremity cellulitis . Followed by infectious disease. Continue current antibiotics. Doppler negative for DVT #8 Severe protein calorie malnutrition add Glucerna shakes #9 elevated lactic acid due to sepsis present on admission #10 generalized weakness and multiple falls due to CHF, acute kidney injury and infection #11 diabetes mellitus type 2 A1c 6.6. 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 Keep pressure off the area Consult PT GI prophylaxis Pepcid and DVT prophylaxis Eliquis
[2018-05-25 12:28] LABS: Glucose,Whole Blood 150 mg/dL (75-99)
[2018-05-25] MEDS ORDERED: METOPROLOL TARTRATE 25 MG TAB PO SCH (16:00)
[2018-05-25] MEDS: SODIUM FERRIC GLUCONAT-SUCROSE 125 MG in SODIUM CHLORIDE 0.9% 100 ML IVPB SCH (16:00)
[2018-05-25 17:04] LABS: Glucose,Whole Blood 157 mg/dL (75-99)
[2018-05-25 20:50] LABS: Glucose,Whole Blood 163 mg/dL (75-99)
[2018-05-25] MEDS: CYCLOBENZAPRINE 10 MG TAB PO SCH (21:03)
[2018-05-25] MEDS: AMITRIPTYLINE HCL 10 MG TAB PO SCH (21:04)
[2018-05-26 06:07] LABS: Glucose,Whole Blood 123 mg/dL (75-99)
[2018-05-26] MEDS: INSULIN ASPART 100 UNIT/ML 1 ML 10 ML VIAL SQ SCH ×4 (06:09→21:33)
[2018-05-26] MEDS: MIDODRINE 5 MG TAB PO SCH ×2 (06:44→18:54)
[2018-05-26 07:22] LABS: Basophils # (A) 0.1 k/uL (0-0.2); Basophils % (A) 1 %; Eosinophils # (A) 0.2 k/uL (0-0.7); Eosinophils % (A) 3 %; HCT 31.7 % (39.0-53.0); Hypochromasia Moderate; Lymphocytes # (A) 1.2 k/uL (1.0-4.8); Lymphocytes % (A) 17 %; MCH 29.8 pg (25.0-35.0); MCHC 31.6 g/dL (31.0-37.0); MCV 94.3 fL (80.0-100.0); Mean Platelet Volume 8.5; Monocytes # (A) 0.5 k/uL (0-1.0); Monocytes % (A) 7 %; Neutrophils # (A) 4.8 k/uL (1.3-7.7); Neutrophils % (A) 69 %; Platelet Count 128 k/uL (150-450); RBC 3.36 m/uL (4.30-5.90); WBC 6.9 k/uL (3.8-10.6)
[2018-05-26 07:58] LABS: Albumin 2.9 g/dL (3.5-5.0); Magnesium 2.5 mg/dL (1.6-2.3); Potassium 4.8 mmol/L (3.5-5.1); Total Bilirubin 1.1 mg/dL (0.2-1.3); Total Protein 5.9 g/dL (6.3-8.2)
[2018-05-26] MEDS ORDERED: ATORVASTATIN 40 MG TAB PO SCH (09:00)
[2018-05-26] MEDS: CLOPIDOGREL 75 MG TAB PO SCH (09:03)
[2018-05-26] MEDS: PIPERACILLIN-TAZOBACTAM 3.375 GM in SODIUM CHLORIDE 0.9% 100 ML IVPB SCH ×3 (09:04→23:10)
[2018-05-26] MEDS: ZINC OXIDE 20% OINT 28.4 GM TUBE TOPICAL SCH ×3 (09:04→21:34)
[2018-05-26] MEDS: FAMOTIDINE 20 MG TAB PO SCH (09:04)
[2018-05-26] MEDS: APIXABAN 2.5 MG TABLET PO SCH ×2 (09:04→21:20)
[2018-05-26] MEDS: METOPROLOL TARTRATE 25 MG TAB PO SCH ×3 (09:04→21:20)
[2018-05-26 11:24] LABS: Glucose,Whole Blood 171 mg/dL (75-99)
[2018-05-26 18:46] LABS: Glucose,Whole Blood 149 mg/dL (75-99)
--- NOTE | 2018-05-26 18:46 | PN ---
PROGRESS NOTE DATE OF SERVICE: May 26, 2018 The patient continues to be in atrial fibrillation with uncontrolled heart rate. The Lasix has been stopped by the nephrology service because of his kidney dysfunction. Currently he is receiving iron IV for his anemia. The lower extremity edema has improved significantly. The plan is for the patient to be discharged to extended care facility probably this coming Monday. He continues to be on oral anticoagulation with Eliquis. MMODL / IJN: [id number] /
[2018-05-26] MEDS: MUPIROCIN 2% OINT 22 GM TUBE TOPICAL SCH (18:53)
[2018-05-26] MEDS: SODIUM FERRIC GLUCONAT-SUCROSE 125 MG in SODIUM CHLORIDE 0.9% 100 ML IVPB SCH (18:53)
[2018-05-26 20:41] LABS: Glucose,Whole Blood 159 mg/dL (75-99)
[2018-05-26] MEDS: CYCLOBENZAPRINE 10 MG TAB PO SCH (21:20)
[2018-05-26] MEDS: AMITRIPTYLINE HCL 10 MG TAB PO SCH (21:33)
[2018-05-27 05:57] LABS: Glucose,Whole Blood 135 mg/dL (75-99)
[2018-05-27] MEDS: INSULIN ASPART 100 UNIT/ML 1 ML 10 ML VIAL SQ SCH ×4 (06:36→21:03)
[2018-05-27] MEDS: MIDODRINE 5 MG TAB PO SCH ×2 (06:36→16:49)
[2018-05-27 07:29] LABS: Anisocytosis Slight; Basophils # (A) 0.1 k/uL (0-0.2); Basophils % (A) 1 %; Eosinophils # (A) 0.2 k/uL (0-0.7); Eosinophils % (A) 3 %; HCT 32.9 % (39.0-53.0); HGB 10.4 gm/dL (13.0-17.5); Hypochromasia Moderate; Lymphocytes # (A) 1.1 k/uL (1.0-4.8); Lymphocytes % (A) 14 %; MCHC 31.7 g/dL (31.0-37.0); MCV 94.6 fL (80.0-100.0); Mean Platelet Volume 8.6; Monocytes # (A) 0.5 k/uL (0-1.0); Monocytes % (A) 7 %; Neutrophils # (A) 5.4 k/uL (1.3-7.7); Neutrophils % (A) 71 %; Platelet Count 120 k/uL (150-450); RBC 3.48 m/uL (4.30-5.90); RDW 16.6 % (11.5-15.5); WBC 7.5 k/uL (3.8-10.6)
[2018-05-27 07:37] LABS: Total Bilirubin 1.3 mg/dL (0.2-1.3); Total Protein 6.1 g/dL (6.3-8.2)
[2018-05-27] MEDS: METOPROLOL TARTRATE 25 MG TAB PO SCH (09:09)
[2018-05-27] MEDS: APIXABAN 2.5 MG TABLET PO SCH ×2 (09:09→20:23)
[2018-05-27] MEDS: CLOPIDOGREL 75 MG TAB PO SCH (09:09)
[2018-05-27] MEDS: ZINC OXIDE 20% OINT 28.4 GM TUBE TOPICAL SCH ×3 (09:09→20:26)
[2018-05-27] MEDS: FAMOTIDINE 20 MG TAB PO SCH (09:09)
[2018-05-27] MEDS: MUPIROCIN 2% OINT 22 GM TUBE TOPICAL SCH (09:10)
--- NOTE | 2018-05-27 11:01 | P.PN ---
Subjective Progress Note Date: 05/27/18 Principal diagnosis: CHF This is a pleasant 82-year-old gentleman with a past medical history significant for valvular heart disease and status post aortic valve replacement using bioprosthetic valve, congestive heart failure secondary to diastolic dysfunction, as well as multiple comorbid conditions was admitted to the hospital with CHF exacerbation as well as atrial fibrillation with RVR which is new to the patient. On follow-up with the patient today, 05/27/2018, he is feeling overall better in terms of shortness of breath. The lower extremities edema has improved as well. He continues to be in atrial fibrillation with slightly uncontrolled heart rate and I would increase the dose of metoprolol to 50 mg by mouth twice a day and continue oral anticoagulation with Eliquis. Objective - Vital Signs Vital signs: Vital Signs Temp 97.7 F 05/27/18 08:00 Pulse 105 H 05/27/18 08:00 Resp 17 05/27/18 08:00 BP 107/71 05/27/18 08:00 Pulse Ox 90 L 05/27/18 08:00 Intake & Output 05/26/18 05/27/18 05/27/18 18:59 06:59 18:59 Intake Total 480 200 Balance 480 200 Weight 84.5 kg Intake: Oral 480 200 Other: Voiding Method Urinal Urinal Urinal Diaper Diaper Diaper # Voids 3 # Bowel Movements 1 - Constitutional General appearance: Present: no acute distress - Respiratory Respiratory: bilateral: CTA - Cardiovascular Rhythm: irregularly irregular Heart sounds: normal: S1, S2 Abnormal Heart Sounds: Present: systolic murmur - Labs CBC & Chem 7: 05/27/18 06:23 05/27/18 06:23 Labs: Abnormal Lab Results - Last 24 Hours (Table) 05/26/18 05/26/18 05/26/18 Range/Units 11:11 16:09 20:39 RBC (4.30-5.90) m/uL Hgb (13.0-17.5) gm/dL Hct (39.0-53.0) % RDW (11.5-15.5) % Plt Count (150-450) k/uL Chloride (98-107) mmol/L BUN (9-20) mg/dL Creatinine (0.66-1.25) mg/dL Glucose (74-99) mg/dL POC Glucose (mg/dL) 171 H 149 H 159 H (75-99) mg/dL Total Protein (6.3-8.2) g/dL Albumin (3.5-5.0) g/dL 05/27/18 05/27/18 05/27/18 Range/Units 05:55 06:23 06:23 RBC 3.48 L (4.30-5.90) m/uL Hgb 10.4 L (13.0-17.5) gm/dL Hct 32.9 L (39.0-53.0) % RDW 16.6 H (11.5-15.5) % Plt Count 120 L (150-450) k/uL Chloride 108 H (98-107) mmol/L BUN 50 H (9-20) mg/dL Creatinine 2.19 H (0.66-1.25) mg/dL Glucose 124 H (74-99) mg/dL POC Glucose (mg/dL) 135 H (75-99) mg/dL Total Protein 6.1 L (6.3-8.2) g/dL Albumin 3.0 L (3.5-5.0) g/dL Microbiology - Last 24 Hours (Table) 05/21/18 13:10 Blood Culture - Preliminary Blood No Growth after 120 hours Assessment and Plan Assessment: Assessment #1 congestive heart failure exacerbation secondary to diastole dysfunction #2 atypical atrial flutter with variable block #3 status post aortic valve replacement #4 history of stroke #5 multiple comorbid conditions Plan #1 increase metoprolol to 50 mg twice a day #2 continue oral anticoagulation #3 possible discharge in the next 24 hour
[2018-05-27] MEDS: SODIUM FERRIC GLUCONAT-SUCROSE 125 MG in SODIUM CHLORIDE 0.9% 100 ML IVPB SCH (11:27)
--- NOTE | 2018-05-27 11:30 | P.PN ---
Subjective Progress Note Date: 05/27/18 Seen and examined for the follow-up of acute kidney injury. Sitting comfortably in the chair in no nausea vomiting diarrhea. Good urine output. Creatinine improving. Objective - Vital Signs Vital signs: Vital Signs Temp 97.7 F 05/27/18 08:00 Pulse 105 H 05/27/18 08:00 Resp 17 05/27/18 08:00 BP 107/71 05/27/18 08:00 Pulse Ox 90 L 05/27/18 08:00 Intake & Output 05/26/18 05/27/18 05/27/18 18:59 06:59 18:59 Intake Total 480 200 Balance 480 200 Weight 84.5 kg Intake: Oral 480 200 Other: Voiding Method Urinal Urinal Urinal Diaper Diaper Diaper # Voids 3 # Bowel Movements 1 - Exam No acute distress S1-S2 heard Lungs clear No edema - Labs CBC & Chem 7: 05/27/18 06:23 05/27/18 06:23 Labs: Abnormal Lab Results - Last 24 Hours (Table) 05/26/18 05/26/18 05/26/18 Range/Units 11:11 16:09 20:39 RBC (4.30-5.90) m/uL Hgb (13.0-17.5) gm/dL Hct (39.0-53.0) % RDW (11.5-15.5) % Plt Count (150-450) k/uL Chloride (98-107) mmol/L BUN (9-20) mg/dL Creatinine (0.66-1.25) mg/dL Glucose (74-99) mg/dL POC Glucose (mg/dL) 171 H 149 H 159 H (75-99) mg/dL Total Protein (6.3-8.2) g/dL Albumin (3.5-5.0) g/dL 05/27/18 05/27/18 05/27/18 Range/Units 05:55 06:23 06:23 RBC 3.48 L (4.30-5.90) m/uL Hgb 10.4 L (13.0-17.5) gm/dL Hct 32.9 L (39.0-53.0) % RDW 16.6 H (11.5-15.5) % Plt Count 120 L (150-450) k/uL Chloride 108 H (98-107) mmol/L BUN 50 H (9-20) mg/dL Creatinine 2.19 H (0.66-1.25) mg/dL Glucose 124 H (74-99) mg/dL POC Glucose (mg/dL) 135 H (75-99) mg/dL Total Protein 6.1 L (6.3-8.2) g/dL Albumin 3.0 L (3.5-5.0) g/dL Microbiology - Last 24 Hours (Table) 05/21/18 13:10 Blood Culture - Preliminary Blood No Growth after 120 hours Assessment and Plan Assessment: #1 nonoliguric acute kidney injury secondary to hemodynamic ATN with diuretics and lisinopril on board. #2 hyperkalemia resolved, component of lisinopril and diabetes. #3 anemia with chronic kidney disease. #4 hypotension better with midodrine. #5 diastolic CHF. Plan: #1 creatinine continue to improve. Monitor renal function closely. #2 avoid nephrotoxic agents and hypotensive episodes. #3 continue with midodrine. No lisinopril and diuretics at discharge. Can be started as outpatient based on renal function. #4 stable from nephrology point of view for discharge to be followed up in outpatient clinic in 1-2 weeks.
[2018-05-27 11:40] LABS: Glucose,Whole Blood 153 mg/dL (75-99)
[2018-05-27] MEDS: PIPERACILLIN-TAZOBACTAM 3.375 GM in SODIUM CHLORIDE 0.9% 100 ML IVPB SCH ×3 (12:43→23:13)
--- NOTE | 2018-05-27 13:13 | P.PN ---
Subjective Progress Note Date: 05/26/18 Date of this progress note is 05/26/2018. Computers were down on 05/26/2018, and the note was dictated on 05/27/2089. Kj Alarcon is an 82-year-old male patient of Dr. Jayna Emerson who presented to [facility] emergency room with multiple medical problems, patient was complaining of increasing weakness, and hypotension, he had multiple falls at home, requiring intervention by the fire department as he was unable to stand up on his own and his is unable to help him up, patient had low blood pressure on the day of admission and was told by his visiting nurse to go to emergency room. Patient states that he moved to this area 1-1/2 years ago from [facility], he has been following with Dr. Jayna Emerson since he came to [facility] he does not see any other specialist he has a visiting nurse who goes to his home and help with lower extremity ulcers management he has an Unna boot on his left lower extremity. Patient has a known history of congestive heart failure, COPD, hypertension, hyperlipidemia, coronary artery disease with previous history of angioplasty and stent placement, history of mitral valve replacement with bovine valve, history of partial gastric resection due to bleeding ulcers, and history of right total knee arthroplasty. Patient used to smoke but quit in 1989 he started smoking as a teenager. On 05/22/2018 patient is alert and oriented 3 in no apparent distress he is sitting up at the edge of the bed his shortness of breath is slightly better he has occasional cough otherwise he denies any complaints there is no fever or chills no headache or dizziness no chest pain no nausea or vomiting no abdominal pain no diarrhea and no urinary symptoms. 05/23/2018 patient lying in bed comfortably. Denies any shortness of breath. Son with lower extremity still having lower extremity edema. Legs are is wrapped. Patient is complaining of discomfort on his bottom. Evidence of the dermatitis and small coccyx stage II ulcer. Zinc oxide ordered. Hemoglobin 9 creatinine 2.80-2.82. Potassium is 5.6 iron low at 43 05/24/2018 patient lying in bed comfortably. Reports some improvement in his shortness of breath. Still having lower extremity edema. Patient did receive a dose of IV Lasix yesterday was started on IV iron per nephrology. Metoprolol was increased to 25 mg twice a day by cardiology to for better heart rate control. Also started on Eliquis for anticoagulation for his atrial fibrillation. Hemoglobin is up to 9.3 creatinine is down to 2.76 potassium down at 5.1. Patient denies any chest pain. Denies any nausea or vomiting. Reports having bowel movements. Denies any difficulty urinating. On 05/25/2018 patient is alert and oriented 3 in no apparent distress, he was seen and examined on the telemetry floor, he is mostly bedridden, he is able to pivot from his bed to a chair with a walker and with help of 1-2 persons, there is no fever or chills no headache or dizziness no chest pain, he has shortness of breath with any activity, no cough no nausea or vomiting no abdominal pain no diarrhea and no urinary symptoms. On 05/26/2018 patient was seen and examined, he had an episode of confusion earlier, at this time he is alert and oriented 3 in no apparent distress, there is no fever or chills no headache or dizziness no chest pain no shortness of breath no cough no nausea or vomiting no abdominal pain no diarrhea and no urinary symptoms. Objective - Vital Signs Vital signs: Vital Signs Temp 98.2 F 05/27/18 11:26 Pulse 99 05/27/18 11:35 Resp 17 05/27/18 11:35 BP 117/85 05/27/18 11:26 Pulse Ox 95 05/27/18 11:26 Intake & Output 05/26/18 05/27/18 05/27/18 18:59 06:59 18:59 Intake Total 480 200 Balance 480 200 Weight 84.5 kg Intake: Oral 480 200 Other: Voiding Method Urinal Urinal Urinal Diaper Diaper Diaper # Voids 3 # Bowel Movements 1 - Exam Head normocephalic Neck supple Lungs clear to auscultation bilaterally no wheezing or crackles Heart irregular. A. fib on monitor Abdomen is soft nontender nondistended positive bowel sounds no hepatosplenomegaly Extremities edema bilateral lower extremities. Legs are Rosalio wrapped Neuro alert and orientated to 3 Skin exam buttocks area is red, stage II ulcer on the coccyx area - Labs CBC & Chem 7: 05/27/18 06:23 05/27/18 06:23 Labs: Abnormal Lab Results - Last 24 Hours (Table) 01/05/26/18 05/27/18 Range/Units 16:09 20:39 05:55 RBC (4.30-5.90) m/uL Hgb (13.0-17.5) gm/dL Hct (39.0-53.0) % RDW (11.5-15.5) % Plt Count (150-450) k/uL Chloride (98-107) mmol/L BUN (9-20) mg/dL Creatinine (0.66-1.25) mg/dL Glucose (74-99) mg/dL POC Glucose (mg/dL) 149 H 159 H 135 H (75-99) mg/dL Total Protein (6.3-8.2) g/dL Albumin (3.5-5.0) g/dL 05/27/18 05/27/18 05/27/18 Range/Units 06:23 06:23 11:21 RBC 3.48 L (4.30-5.90) m/uL Hgb 10.4 L (13.0-17.5) gm/dL Hct 32.9 L (39.0-53.0) % RDW 16.6 H (11.5-15.5) % Plt Count 120 L (150-450) k/uL Chloride 108 H (98-107) mmol/L BUN 50 H (9-20) mg/dL Creatinine 2.19 H (0.66-1.25) mg/dL Glucose 124 H (74-99) mg/dL POC Glucose (mg/dL) 153 H (75-99) mg/dL Total Protein 6.1 L (6.3-8.2) g/dL Albumin 3.0 L (3.5-5.0) g/dL Microbiology - Last 24 Hours (Table) 05/21/18 13:10 Blood Culture - Preliminary Blood No Growth after 120 hours Assessment and Plan Plan: #1 acute on chronic diastolic congestive heart failure exacerbation. Patient was given 1 dose of IV Lasix yesterday. Not on ROSALIO inhibitor due to hypotension and renal failure. Echo shows an EF of 55-60% mild to moderate tricuspid regurgitation. Cardiology and nephrology following #2 atrial flutter: Cardiology is increased the metoprolol to 25 mg daily and started patient on Eliquis for anticoagulation #3 acute kidney injury secondary to ATN due to hypotension and medications. Patient had been on ROSALIO inhibitor and diuretics at home. Nephrology is following. No evidence of hydronephrosis on renal ultrasound. Creatinine on presentation 2.94 improved today to 2.58 #4 hyperkalemia secondary to acute kidney injury and lisinopril. Improved with Kayexalate #5 history of aortic valve replacement #6 iron deficiency anemia: Hemoglobin 9.9 Total iron 43. Nephrology has ordered IV iron for 3 days #7 bilateral lower extremity cellulitis . Followed by infectious disease. Continue current antibiotics. Doppler negative for DVT #8 Severe protein calorie malnutrition add Glucerna shakes #9 elevated lactic acid due to sepsis present on admission #10 generalized weakness and multiple falls due to CHF, acute kidney injury and infection #11 diabetes mellitus type 2 A1c 6.6. 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 Keep pressure off the area Consult PT GI prophylaxis Pepcid and DVT prophylaxis Eliquis
--- NOTE | 2018-05-27 13:15 | P.PN ---
Subjective Progress Note Date: 05/27/18 Kj Alarcon is an 82-year-old male patient of Dr. Jayna Emerson who presented to [facility] emergency room with multiple medical problems, patient was complaining of increasing weakness, and hypotension, he had multiple falls at home, requiring intervention by the fire department as he was unable to stand up on his own and his is unable to help him up, patient had low blood pressure on the day of admission and was told by his visiting nurse to go to emergency room. Patient states that he moved to this area 1-1/2 years ago from [facility], he has been following with Dr. Jayna Emerson since he came to [facility] he does not see any other specialist he has a visiting nurse who goes to his home and help with lower extremity ulcers management he has an Unna boot on his left lower extremity. Patient has a known history of congestive heart failure, COPD, hypertension, hyperlipidemia, coronary artery disease with previous history of angioplasty and stent placement, history of mitral valve replacement with bovine valve, history of partial gastric resection due to bleeding ulcers, and history of right total knee arthroplasty. Patient used to smoke but quit in 1989 he started smoking as a teenager. On 05/22/2018 patient is alert and oriented 3 in no apparent distress he is sitting up at the edge of the bed his shortness of breath is slightly better he has occasional cough otherwise he denies any complaints there is no fever or chills no headache or dizziness no chest pain no nausea or vomiting no abdominal pain no diarrhea and no urinary symptoms. 05/23/2018 patient lying in bed comfortably. Denies any shortness of breath. Son with lower extremity still having lower extremity edema. Legs are is wrapped. Patient is complaining of discomfort on his bottom. Evidence of the dermatitis and small coccyx stage II ulcer. Zinc oxide ordered. Hemoglobin 9 creatinine 2.80-2.82. Potassium is 5.6 iron low at 43 05/24/2018 patient lying in bed comfortably. Reports some improvement in his shortness of breath. Still having lower extremity edema. Patient did receive a dose of IV Lasix yesterday was started on IV iron per nephrology. Metoprolol was increased to 25 mg twice a day by cardiology to for better heart rate control. Also started on Eliquis for anticoagulation for his atrial fibrillation. Hemoglobin is up to 9.3 creatinine is down to 2.76 potassium down at 5.1. Patient denies any chest pain. Denies any nausea or vomiting. Reports having bowel movements. Denies any difficulty urinating. On 05/25/2018 patient is alert and oriented 3 in no apparent distress, he was seen and examined on the telemetry floor, he is mostly bedridden, he is able to pivot from his bed to a chair with a walker and with help of 1-2 persons, there is no fever or chills no headache or dizziness no chest pain, he has shortness of breath with any activity, no cough no nausea or vomiting no abdominal pain no diarrhea and no urinary symptoms. On 05/26/2018 patient was seen and examined, he had an episode of confusion earlier, at this time he is alert and oriented 3 in no apparent distress, there is no fever or chills no headache or dizziness no chest pain no shortness of breath no cough no nausea or vomiting no abdominal pain no diarrhea and no urinary symptoms. On 05/27/2018 patient was seen and examined on the telemetry floor, again his today relates an episode of confusion whether patient was unable to recognize where he was, at this time he is alert and oriented 3 there is no fever or chills no headache or dizziness no chest pain no shortness of breath no cough no nausea or vomiting no abdominal pain and no urinary symptoms Objective - Vital Signs Vital signs: Vital Signs Temp 98.2 F 05/27/18 11:26 Pulse 99 05/27/18 11:35 Resp 17 05/27/18 11:35 BP 117/85 05/27/18 11:26 Pulse Ox 95 05/27/18 11:26 Intake & Output 05/26/18 05/27/18 05/27/18 18:59 06:59 18:59 Intake Total 480 200 Balance 480 200 Weight 84.5 kg Intake: Oral 480 200 Other: Voiding Method Urinal Urinal Urinal Diaper Diaper Diaper # Voids 3 # Bowel Movements 1 - Exam Head normocephalic Neck supple no JVD no goiter Lungs clear to auscultation bilaterally no wheezing or crackles Heart irregular. A. fib on monitor Abdomen is soft nontender nondistended positive bowel sounds no hepatosplenomegaly Extremities edema bilateral lower extremities. Legs are Rosalio wrapped Neuro alert and orientated to 3 Skin exam buttocks area is red, stage II ulcer on the coccyx area - Labs CBC & Chem 7: 05/27/18 06:23 05/27/18 06:23 Labs: Abnormal Lab Results - Last 24 Hours (Table) 05/26/18 05/26/18 05/27/18 Range/Units 16:09 20:39 05:55 RBC (4.30-5.90) m/uL Hgb (13.0-17.5) gm/dL Hct (39.0-53.0) % RDW (11.5-15.5) % Plt Count (150-450) k/uL Chloride (98-107) mmol/L BUN (9-20) mg/dL Creatinine (0.66-1.25) mg/dL Glucose (74-99) mg/dL POC Glucose (mg/dL) 149 H 159 H 135 H (75-99) mg/dL Total Protein (6.3-8.2) g/dL Albumin (3.5-5.0) g/dL 05/27/18 05/27/18 05/27/18 Range/Units 06:23 06:23 11:21 RBC 3.48 L (4.30-5.90) m/uL Hgb 10.4 L (13.0-17.5) gm/dL Hct 32.9 L (39.0-53.0) % RDW 16.6 H (11.5-15.5) % Plt Count 120 L (150-450) k/uL Chloride 108 H (98-107) mmol/L BUN 50 H (9-20) mg/dL Creatinine 2.19 H (0.66-1.25) mg/dL Glucose 124 H (74-99) mg/dL POC Glucose (mg/dL) 153 H (75-99) mg/dL Total Protein 6.1 L (6.3-8.2) g/dL Albumin 3.0 L (3.5-5.0) g/dL Microbiology - Last 24 Hours (Table) 05/21/18 13:10 Blood Culture - Preliminary Blood No Growth after 120 hours Assessment and Plan Plan: #1 acute on chronic diastolic congestive heart failure exacerbation. Patient was given 1 dose of IV Lasix yesterday. Not on ROSALIO inhibitor due to hypotension and renal failure. Echo shows an EF of 55-60% mild to moderate tricuspid regurgitation. Cardiology and nephrology following #2 atrial flutter: Cardiology is increased the metoprolol to 25 mg daily and started patient on Eliquis for anticoagulation #3 acute kidney injury secondary to ATN due to hypotension and medications. Patient had been on ROSALIO inhibitor and diuretics at home. Nephrology is following. No evidence of hydronephrosis on renal ultrasound. Creatinine on presentation 2.94 improved today to 2.58 #4 hyperkalemia secondary to acute kidney injury and lisinopril. Improved with Kayexalate #5 history of aortic valve replacement #6 iron deficiency anemia: Hemoglobin 9.9 Total iron 43. Nephrology has ordered IV iron for 3 days #7 bilateral lower extremity cellulitis . Followed by infectious disease. Continue current antibiotics. Doppler negative for DVT #8 Severe protein calorie malnutrition add Glucerna shakes #9 elevated lactic acid due to sepsis present on admission #10 generalized weakness and multiple falls due to CHF, acute kidney injury and infection #11 diabetes mellitus type 2 A1c 6.6. 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 Keep pressure off the area #17 episodes of confusion will check computed tomography scan of the brain without contrast Consult PT GI prophylaxis Pepcid and DVT prophylaxis Eliquis
--- NOTE | 2018-05-27 14:38 | CT ---
EXAMINATION TYPE: CT brain wo con DATE OF EXAM: 05/27/2018 COMPARISON: None HISTORY: mental status changes CT DLP: 1150.4 mGycm Automated exposure control for dose reduction was used. Helical imaging through the brain FINDINGS: Periventricular white matter shows patchy low attenuation. There is cortical atrophy. Prominence of t he ventricles is present in accordance with the degree of atrophy. Question some focal encephalomalac ia in the right frontal lobe medially. Cerebral vascular calcifications are present. Calvarium is int act. Mild inflammatory change present in the right maxillary sinus, there may be chronic sinusitis, s clerosis is present in the maxillary sinus love. Mastoid air cells are well aerated. 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 CORRELATE FOR CHRONIC RIGHT MAXILLARY SINUSITI S.
[2018-05-27 16:40] LABS: Glucose,Whole Blood 207 mg/dL (75-99)
[2018-05-27] MEDS: CYCLOBENZAPRINE 10 MG TAB PO SCH (20:23)
[2018-05-27] MEDS: METOPROLOL TARTRATE 50 MG TAB PO SCH (20:23)
[2018-05-27] MEDS: AMITRIPTYLINE HCL 10 MG TAB PO SCH (20:24)
[2018-05-27 21:07] LABS: Glucose,Whole Blood 191 mg/dL (75-99)
[2018-05-28] MEDS: INSULIN ASPART 100 UNIT/ML 1 ML 10 ML VIAL SQ SCH ×4 (06:24→21:25)
[2018-05-28] MEDS: MIDODRINE 5 MG TAB PO SCH ×2 (06:25→17:16)
[2018-05-28 06:28] LABS: Anisocytosis Slight; Basophils # (A) 0.1 k/uL (0-0.2); Basophils % (A) 1 %; Eosinophils # (A) 0.3 k/uL (0-0.7); Eosinophils % (A) 4 %; HCT 32.9 % (39.0-53.0); HGB 10.1 gm/dL (13.0-17.5); Hypochromasia Slight; Lymphocytes # (A) 1.4 k/uL (1.0-4.8); Lymphocytes % (A) 19 %; MCH 28.6 pg (25.0-35.0); MCHC 30.7 g/dL (31.0-37.0); MCV 93.1 fL (80.0-100.0); Macrocytosis Slight; Mean Platelet Volume 8.2; Monocytes # (A) 0.5 k/uL (0-1.0); Monocytes % (A) 7 %; Neutrophils # (A) 4.9 k/uL (1.3-7.7); Neutrophils % (A) 66 %; Platelet Count 112 k/uL (150-450); RBC 3.53 m/uL (4.30-5.90); RDW 18.4 % (11.5-15.5); WBC 7.4 k/uL (3.8-10.6)
[2018-05-28 06:34] LABS: Glucose,Whole Blood 129 mg/dL (75-99)
[2018-05-28] MEDS: CLOPIDOGREL 75 MG TAB PO SCH (09:03)
[2018-05-28] MEDS: APIXABAN 2.5 MG TABLET PO SCH ×2 (09:03→20:31)
[2018-05-28] MEDS: FAMOTIDINE 20 MG TAB PO SCH (09:03)
[2018-05-28] MEDS: METOPROLOL TARTRATE 50 MG TAB PO SCH ×2 (09:04→20:31)
[2018-05-28] MEDS: ZINC OXIDE 20% OINT 28.4 GM TUBE TOPICAL SCH ×3 (09:04→20:31)
[2018-05-28] MEDS: MUPIROCIN 2% OINT 22 GM TUBE TOPICAL SCH (09:05)
[2018-05-28 09:15] LABS: Calcium 9.1 mg/dL (8.4-10.2)
--- NOTE | 2018-05-28 09:28 | P.PN ---
Subjective Progress Note Date: 05/28/18 Principal diagnosis: CHF This is a pleasant 82-year-old gentleman with a past medical history significant for valvular heart disease and status post aortic valve replacement using bioprosthetic valve, congestive heart failure secondary to diastolic dysfunction, as well as multiple comorbid conditions was admitted to the hospital with CHF exacerbation as well as atrial fibrillation with RVR which is new to the patient. On follow-up with the patient today, 05/28/2018, he is feeling overall better in terms of shortness of breath. The lower extremities edema has improved as well. The heart rate seems to be better controlled after increasing dose of metoprolol. From the cardiac vascular standpoint of view, the patient can be discharged into an extended-care facility. Objective - Vital Signs Vital signs: Vital Signs Temp 96.6 F L 05/28/18 08:40 Pulse 90 05/28/18 08:40 Resp 18 05/28/18 08:40 BP 118/71 05/28/18 08:40 Pulse Ox 92 L 05/28/18 08:40 Intake & Output 05/27/18 05/28/18 05/28/18 18:59 06:59 18:59 Intake Total 1200 780 Output Total 200 200 Balance 1000 580 Weight 145.5 kg Intake: IV 20 Invasive Line 3 20 Intake, IV Titration 300 Amount Piperacillin-Tazobactam 3 100 .375 gm In Sodium Chloride 0.9% 100 ml @ 25 mls/hr IVPB Q12HR [facility] Rx #:[id number] Piperacillin-Tazobactam 3 100 .375 gm In Sodium Chloride 0.9% 100 ml @ 25 mls/hr IVPB Q8HR [facility] Rx# :[id number] Sodium Ferric Gluconat- 100 Sucrose 125 mg In Sodium Chloride 0.9% 100 ml @ 100 mls/hr IVPB DAILY [facility] Rx#:[id number] Oral 1180 480 Output: Urine 200 200 Other: Voiding Method Urinal Urinal Diaper Diaper # Voids 1 2 - Constitutional General appearance: Present: no acute distress - Respiratory Respiratory: bilateral: diminished - Cardiovascular Rhythm: irregularly irregular Heart sounds: normal: S1, S2 - Labs CBC & Chem 7: 05/28/18 05:55 05/28/18 05:55 Labs: Abnormal Lab Results - Last 24 Hours (Table) 05/27/18 05/27/18 05/27/18 Range/Units 11:21 16:27 20:58 RBC (4.30-5.90) m/uL Hgb (13.0-17.5) gm/dL Hct (39.0-53.0) % MCHC (31.0-37.0) g/dL RDW (11.5-15.5) % Plt Count (150-450) k/uL Chloride (98-107) mmol/L Carbon Dioxide (22-30) mmol/L BUN (9-20) mg/dL Creatinine (0.66-1.25) mg/dL Glucose (74-99) mg/dL POC Glucose (mg/dL) 153 H 207 H 191 H (75-99) mg/dL 05/28/18 05/28/18 05/28/18 Range/Units 05:55 05:55 06:23 RBC 3.53 L (4.30-5.90) m/uL Hgb 10.1 L (13.0-17.5) gm/dL Hct 32.9 L (39.0-53.0) % MCHC 30.7 L (31.0-37.0) g/dL RDW 18.4 H (11.5-15.5) % Plt Count 112 L (150-450) k/uL Chloride 111 H (98-107) mmol/L Carbon Dioxide 21 L (22-30) mmol/L BUN 51 H (9-20) mg/dL Creatinine 2.08 H (0.66-1.25) mg/dL Glucose 109 H (74-99) mg/dL POC Glucose (mg/dL) 129 H (75-99) mg/dL Microbiology - Last 24 Hours (Table) 05/21/18 13:10 Blood Culture - Final Blood No Growth after 144 hours Assessment and Plan Assessment: Assessment #1 congestive heart failure exacerbation secondary to diastole dysfunction #2 atypical atrial flutter with variable block #3 status post aortic valve replacement #4 history of stroke #5 multiple comorbid conditions Plan #1 continue the current dose of metoprolol #2 continue oral anticoagulation #3 possible discharge in the next 24 hour
[2018-05-28] MEDS: SODIUM FERRIC GLUCONAT-SUCROSE 125 MG in SODIUM CHLORIDE 0.9% 100 ML IVPB SCH (09:59)
--- NOTE | 2018-05-28 11:07 | P.PN ---
Subjective Patient is seen in follow-up for acute kidney injury. Renal function has been improving. Creatinine 2.08 today. Currently sitting up in bed. Denies chest pain or shortness of breath. Admits to good urine output. Heart rate controlled. Vital signs are stable. General: The patient appeared well nourished and normally developed. HEENT: Head exam is unremarkable. Neck is without jugular venous distension. LUNGS: Lungs are clear to auscultation and percussion. Breath sounds decreased. HEART: Rate and Rhythm are regular. First and second heart sounds normal. No murmurs, rubs or gallops. ABDOMEN: Abdominal exam reveals normal bowel sounds. Non-tender and non- distended. No evidence of peritonitis. EXTREMITITES: Trace edema. Lower extremities wrapped. Objective - Vital Signs Vital signs: Vital Signs Temp 96.6 F L 05/28/18 08:40 Pulse 90 05/28/18 08:40 Resp 18 05/28/18 08:40 BP 118/71 05/28/18 08:40 Pulse Ox 92 L 05/28/18 08:40 Intake & Output 05/27/18 05/28/18 05/28/18 18:59 06:59 18:59 Intake Total 1200 780 Output Total 200 200 Balance 1000 580 Weight 145.5 kg Intake: IV 20 Invasive Line 3 20 Intake, IV Titration 300 Amount Piperacillin-Tazobactam 3 100 .375 gm In Sodium Chloride 0.9% 100 ml @ 25 mls/hr IVPB Q12HR [facility] Rx #:[id number] Piperacillin-Tazobactam 3 100 .375 gm In Sodium Chloride 0.9% 100 ml @ 25 mls/hr IVPB Q8HR [facility] Rx# :[id number] Sodium Ferric Gluconat- 100 Sucrose 125 mg In Sodium Chloride 0.9% 100 ml @ 100 mls/hr IVPB DAILY [facility] Rx#:[id number] Oral 1180 480 Output: Urine 200 200 Other: Voiding Method Urinal Urinal Diaper Diaper # Voids 1 2 - Labs CBC & Chem 7: 05/28/18 05:55 05/28/18 05:55 Labs: Abnormal Lab Results - Last 24 Hours (Table) 05/27/18 05/27/18 05/27/18 Range/Units 11:21 16:27 20:58 RBC (4.30-5.90) m/uL Hgb (13.0-17.5) gm/dL Hct (39.0-53.0) % MCHC (31.0-37.0) g/dL RDW (11.5-15.5) % Plt Count (150-450) k/uL Chloride (98-107) mmol/L Carbon Dioxide (22-30) mmol/L BUN (9-20) mg/dL Creatinine (0.66-1.25) mg/dL Glucose (74-99) mg/dL POC Glucose (mg/dL) 153 H 207 H 191 H (75-99) mg/dL 05/28/18 05/28/18 05/28/18 Range/Units 05:55 05:55 06:23 RBC 3.53 L (4.30-5.90) m/uL Hgb 10.1 L (13.0-17.5) gm/dL Hct 32.9 L (39.0-53.0) % MCHC 30.7 L (31.0-37.0) g/dL RDW 18.4 H (11.5-15.5) % Plt Count 112 L (150-450) k/uL Chloride 111 H (98-107) mmol/L Carbon Dioxide 21 L (22-30) mmol/L BUN 51 H (9-20) mg/dL Creatinine 2.08 H (0.66-1.25) mg/dL Glucose 109 H (74-99) mg/dL POC Glucose (mg/dL) 129 H (75-99) mg/dL Microbiology - Last 24 Hours (Table) 05/21/18 13:10 Blood Culture - Final Blood No Growth after 144 hours Assessment and Plan Plan: Assessment: 1. Acute kidney injury secondary to ATN secondary to hypotension. Patient was also taking lisinopril and diuretics at home. Creatinine 2.94 on admission. Renal function improved since admission - creatinine 2.0 today. Unclear as to what his baseline renal function is. No evidence of hydronephrosis noted on renal ultrasound. UA benign. 2. Hyperkalemia secondary to acute kidney injury and lisinopril. Stable. 3. Diabetes mellitus. 4. Anemia. Iron deficiency noted. Status post 3 doses of IV iron. 5. History of aortic valve replacement. 6. Atrial flutter maintained on Lopressor. Heart rate controlled. 7. Lower extremity ulcerations maintained on antibiotics. Infectious disease following. 8. Hypotension. Better. Maintained on midodrine. 9. Diastolic CHF with mild to moderate tricuspid regurgitation. Plan: Continue to hold diuretics. Encouraged oral intake. Low potassium diet. Anticipate discharge soon. Repeat basic metabolic panel in 2-3 days postdischarge. Follow up outpatient in the next 1-2 weeks.
[2018-05-28 11:57] LABS: Glucose,Whole Blood 159 mg/dL (75-99)
[2018-05-28] MEDS: PIPERACILLIN-TAZOBACTAM 3.375 GM in SODIUM CHLORIDE 0.9% 100 ML IVPB SCH ×3 (12:11→22:41)
--- NOTE | 2018-05-28 13:39 | P.DS ---
Providers Date of admission: 05/21/18 14:59 Expected date of discharge: 05/28/18 Attending physician: Daniel Guadarrama Consults: 05/21/18 19:12 Consult Physician Routine Consulting Provider: Trev Fregoso Consult Reason/Comments: CHF Do you want consulting provider notified?: Yes 05/21/18 19:13 Consult Physician Routine Consulting Provider: Godwin Flores Consult Reason/Comments: COPD, pneumonia Do you want consulting provider notified?: Yes 05/21/18 19:14 Consult Physician Routine Consulting Provider: Aaron Mayorga Consult Reason/Comments: pneumonia, lower ext cellulitis with ulcers Do you want consulting provider notified?: Yes 05/21/18 19:17 Consult Physician Routine Consulting Provider: Olive Dillon Consult Reason/Comments: acute renal failure Do you want consulting provider notified?: Yes Primary care physician: Jayna [facility] Course: Discharge diagnosis #1 acute on chronic diastolic congestive heart failure exacerbation. Patient was given 1 dose of IV Lasix yesterday. Not on TOMER inhibitor due to hypotension and renal failure. Echo shows an EF of 55-60% mild to moderate tricuspid regurgitation. Cardiology and nephrology following. Patient is currently off of the diuretics #2 atrial flutter: Cardiology is increased the metoprolol to 50mg twice a day and started patient on Eliquis for anticoagulation #3 acute kidney injury secondary to ATN due to hypotension and medications. Patient had been on TOMER inhibitor and diuretics at home. Nephrology is following. No evidence of hydronephrosis on renal ultrasound. Creatinine on presentation 2.94 improved today to 2.08 at discharge #4 hyperkalemia secondary to acute kidney injury and lisinopril. Improved with Kayexalate #5 history of aortic valve replacement #6 iron deficiency anemia: Hemoglobin 9.9 Total iron 43. Nephrology has ordered IV iron for 3 days #7 bilateral lower extremity cellulitis . Followed by infectious disease. Continue current antibiotics. Doppler negative for DVT #8 Severe protein calorie malnutrition add Glucerna shakes #9 elevated lactic acid due to sepsis present on admission #10 generalized weakness and multiple falls due to CHF, acute kidney injury and infection #11 diabetes mellitus type 2 A1c 6.6. 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 Keep pressure off the area #17 episodes of confusion resolved. Computed tomography scan of the brain showing no acute changes Hospital course Kj Alarcon is an 82-year-old male patient of Dr. Jayna Emerson who presented to [facility] emergency room with multiple medical problems, patient was complaining of increasing weakness, and hypotension, he had multiple falls at home, requiring intervention by the fire department as he was unable to stand up on his own and his is unable to help him up, patient had low blood pressure on the day of admission and was told by his visiting nurse to go to emergency room. Patient states that he moved to this area 1-1/2 years ago from [facility], he has been following with Dr. Jayna Emerson since he came to [facility] he does not see any other specialist he has a visiting nurse who goes to his home and help with lower extremity ulcers management he has an Unna boot on his left lower extremity. Patient has a known history of congestive heart failure, COPD, hypertension, hyperlipidemia, coronary artery disease with previous history of angioplasty and stent placement, history of mitral valve replacement with bovine valve, history of partial gastric resection due to bleeding ulcers, and history of right total knee arthroplasty. Patient used to smoke but quit in 1989 he started smoking as a teenager. On 05/22/2018 patient is alert and oriented 3 in no apparent distress he is sitting up at the edge of the bed his shortness of breath is slightly better he has occasional cough otherwise he denies any complaints there is no fever or chills no headache or dizziness no chest pain no nausea or vomiting no abdominal pain no diarrhea and no urinary symptoms. 05/23/2018 patient lying in bed comfortably. Denies any shortness of breath. Son with lower extremity still having lower extremity edema. Legs are is wrapped. Patient is complaining of discomfort on his bottom. Evidence of the dermatitis and small coccyx stage II ulcer. Zinc oxide ordered. Hemoglobin 9 creatinine 2.80-2.82. Potassium is 5.6 iron low at 43 05/24/2018 patient lying in bed comfortably. Reports some improvement in his shortness of breath. Still having lower extremity edema. Patient did receive a dose of IV Lasix yesterday was started on IV iron per nephrology. Metoprolol was increased to 25 mg twice a day by cardiology to for better heart rate control. Also started on Eliquis for anticoagulation for his atrial fibrillation. Hemoglobin is up to 9.3 creatinine is down to 2.76 potassium down at 5.1. Patient denies any chest pain. Denies any nausea or vomiting. Reports having bowel movements. Denies any difficulty urinating. On 05/25/2018 patient is alert and oriented 3 in no apparent distress, he was seen and examined on the telemetry floor, he is mostly bedridden, he is able to pivot from his bed to a chair with a walker and with help of 1-2 persons, there is no fever or chills no headache or dizziness no chest pain, he has shortness of breath with any activity, no cough no nausea or vomiting no abdominal pain no diarrhea and no urinary symptoms. On 05/26/2018 patient was seen and examined, he had an episode of confusion earlier, at this time he is alert and oriented 3 in no apparent distress, there is no fever or chills no headache or dizziness no chest pain no shortness of breath no cough no nausea or vomiting no abdominal pain no diarrhea and no urinary symptoms. On 05/27/2018 patient was seen and examined on the telemetry floor, again his today relates an episode of confusion whether patient was unable to recognize where he was, at this time he is alert and oriented 3 there is no fever or chills no headache or dizziness no chest pain no shortness of breath no cough no nausea or vomiting no abdominal pain and no urinary symptoms 05/28/2018 patient is medically stable for discharge to [facility]. We are awaiting prior authorization from his insurance. During this admission patient was treated for CHF exacerbation and acute kidney injury and atrial flutter. Patient started on Eliquis for anticoagulation. Also metoprolol was increased to 50 mg twice a day for better heart rate control. Patient did receive IV Lasix. And is currently off of diuretics per nephrology. Creatinine is at 2.08. Also during this admission TOMER inhibitor was discontinued as well as metformin due to patient's kidney function. Nephrology is recommending BMP to be checked in 2-3 days. Also continue to monitor hemoglobin. He has received IV iron during this admission. Hemoglobin at discharge is 10.1. He'll be sent with oral iron. Patient also being treated for bilateral lower extremity cellulitis. The left tibia has a small opening in the skin. And which Bactroban is being placed. Right foot has dark skin change on the toe fifth and fourth toe.patient followed by infectious disease. Awaiting oral antibiotic recommendations per infectious disease. Nursing staff and outpatient case manager aware that before patient is discharged he needs antibiotic recommendations per infectious disease. Patient's symptoms have improved he is medically stable for discharge by freight traffic consultant physicians. He'll be discharged to [facility]. Dr. Guadarrama to follow at [facility]. Recommend checking CBC and BMP in 2 days I performed an examination of the patient and discussed their management with the physician Crm Campaign Manager. I have reviewed the Physician Crm Campaign Manager's notes and agree with the documented findings and plan of care Patient Condition at Discharge: Stable Plan - Discharge Summary Discharge Rx Participant: No New Discharge Prescriptions: New Apixaban [Eliquis] 2.5 mg PO BID tablet Insulin Aspart [NovoLOG (formulary)] 0 unit SQ ACHS vial Metoprolol Tartrate [Lopressor] 50 mg PO BID tab Midodrine [ProAmatine] 5 mg PO AC-BID tab Zinc Oxide 20% Oint 1 applic TOPICAL TID applic Ferrous Sulfate [Feosol] 325 mg PO BID #60 tab Mupirocin 2% Oint [Bactroban 2% Oint] 1 applic TOPICAL DAILY 7 Days applic Continue Ergocalciferol [Vitamin D2 (DRISDOL)] 50,000 unit PO SA Clopidogrel [Plavix] 75 mg PO DAILY Amitriptyline HCl 10 mg PO HS Cyclobenzaprine HCl 10 mg PO HS Atorvastatin Calcium [Lipitor] 40 mg PO SA Discontinued Carvedilol 12.5 mg PO BID metFORMIN HCL ER [Glucophage Xr] 500 mg PO BID Lisinopril [Zestril] 10 mg PO DAILY Furosemide [Lasix] 20 mg PO DAILY Discharge Medication List Amitriptyline HCl 10 mg PO HS 05/21/18 [History] Atorvastatin Calcium [Lipitor] 40 mg PO SA 05/21/18 [History] Clopidogrel [Plavix] 75 mg PO DAILY 05/21/18 [History] Cyclobenzaprine HCl 10 mg PO HS 05/21/18 [History] Ergocalciferol [Vitamin D2 (DRISDOL)] 50,000 unit PO SA 05/21/18 [History] Apixaban [Eliquis] 2.5 mg PO BID tablet 05/28/18 [Rx] Ferrous Sulfate [Feosol] 325 mg PO BID #60 tab 05/28/18 [Rx] Insulin Aspart [NovoLOG (formulary)] 0 unit SQ ACHS vial 05/28/18 [Rx] Metoprolol Tartrate [Lopressor] 50 mg PO BID tab 05/28/18 [Rx] Midodrine [ProAmatine] 5 mg PO AC-BID tab 05/28/18 [Rx] Mupirocin 2% Oint [Bactroban 2% Oint] 1 applic TOPICAL DAILY 7 Days applic [Rx] Zinc Oxide 20% Oint 1 applic TOPICAL TID applic 05/28/18 [Rx] Follow up Appointment(s)/Referral(s): [facility] [Provider Group] - 1 Week Godwin Flores MD [STAFF PHYSICIAN] - 1 Week Jayna Emerson DO [Primary Care Provider] - 1 Week Reece Pierre DO [STAFF PHYSICIAN] - 1 Week Ambulatory/Diagnostic Orders: Basic Metabolic Panel [LAB.AMB] Time Frame: 3 Days, Location: None Selected Activity/Diet/Wound Care/Special Instructions: pts monthly copay for eliquis is $425 Diet: diabetic, cardiac Activity: as tolerated ok to discharge to [facility] Awaiting antibiotic recommendations per Dr. Mayorga Discharge Disposition: TRANSFER TO SNF/ECF
[2018-05-28 16:51] LABS: Glucose,Whole Blood 155 mg/dL (75-99)
[2018-05-28] MEDS: CYCLOBENZAPRINE 10 MG TAB PO SCH (20:31)
[2018-05-28] MEDS: AMITRIPTYLINE HCL 10 MG TAB PO SCH (20:32)
[2018-05-28 21:19] LABS: Glucose,Whole Blood 131 mg/dL (75-99)
[2018-05-29 06:04] LABS: Calcium 9.4 mg/dL (8.4-10.2); Magnesium 2.7 mg/dL (1.6-2.3); Potassium 4.9 mmol/L (3.5-5.1)
[2018-05-29] MEDS: INSULIN ASPART 100 UNIT/ML 1 ML 10 ML VIAL SQ SCH ×3 (06:12→16:51)
[2018-05-29] MEDS: MIDODRINE 5 MG TAB PO SCH ×2 (06:14→16:50)
[2018-05-29 06:27] LABS: Glucose,Whole Blood 126 mg/dL (75-99)
[2018-05-29] MEDS: PIPERACILLIN-TAZOBACTAM 3.375 GM in SODIUM CHLORIDE 0.9% 100 ML IVPB SCH (07:25)
[2018-05-29 08:17] VITALS: TEMP 96.6
[2018-05-29] MEDS: CLOPIDOGREL 75 MG TAB PO SCH (08:24)
[2018-05-29] MEDS: METOPROLOL TARTRATE 50 MG TAB PO SCH (08:24)
[2018-05-29] MEDS: ZINC OXIDE 20% OINT 28.4 GM TUBE TOPICAL SCH ×2 (08:24→14:00)
[2018-05-29] MEDS: FAMOTIDINE 20 MG TAB PO SCH (08:24)
[2018-05-29] MEDS: APIXABAN 2.5 MG TABLET PO SCH (08:24)
[2018-05-29] MEDS: MUPIROCIN 2% OINT 22 GM TUBE TOPICAL SCH (08:25)
--- NOTE | 2018-05-29 09:21 | P.PN ---
Subjective Progress Note Date: 05/29/18 Principal diagnosis: CHF This is a pleasant 82-year-old gentleman with a past medical history significant for valvular heart disease and status post aortic valve replacement using bioprosthetic valve, congestive heart failure secondary to diastolic dysfunction, as well as multiple comorbid conditions was admitted to the hospital with CHF exacerbation as well as atrial fibrillation with RVR which is new to the patient. On follow-up with the patient today, 05/29/2018, he is feeling overall better in terms of shortness of breath. the patient can be discharged into an extended -care facility. Objective - Vital Signs Vital signs: Vital Signs Temp 96.6 F L 05/29/18 08:16 Pulse 92 05/29/18 08:16 Resp 18 05/29/18 08:16 BP 126/71 05/29/18 08:16 Pulse Ox 95 05/29/18 08:16 Intake & Output 05/28/18 05/29/18 05/29/18 18:59 06:59 18:59 Intake Total 100 240 480 Balance 100 240 480 Weight 139 kg Intake: Intake, IV Titration 100 Amount Sodium Ferric Gluconat- 100 Sucrose 125 mg In Sodium Chloride 0.9% 100 ml @ 100 mls/hr IVPB DAILY [facility] Rx#:[id number] Oral 240 480 Other: Voiding Method Urinal Urinal Diaper Diaper # Voids 3 3 1 # Bowel Movements 1 1 1 - Constitutional General appearance: Present: no acute distress - Respiratory Respiratory: bilateral: diminished - Cardiovascular Rhythm: irregularly irregular Heart sounds: normal: S1, S2 Abnormal Heart Sounds: Present: systolic murmur - Labs CBC & Chem 7: 05/28/18 05:55 05/29/18 05:20 Labs: Abnormal Lab Results - Last 24 Hours (Table) 05/28/18 05/28/18 05/28/18 Range/Units 05:55 11:51 16:42 Chloride 111 H (98-107) mmol/L Carbon Dioxide 21 L (22-30) mmol/L BUN 51 H (9-20) mg/dL Creatinine 2.08 H (0.66-1.25) mg/dL Glucose 109 H (74-99) mg/dL POC Glucose (mg/dL) 159 H 155 H (75-99) mg/dL Magnesium (1.6-2.3) mg/dL 05/28/18 05/29/18 05/29/18 Range/Units 21:16 05:20 05:57 Chloride 109 H (98-107) mmol/L Carbon Dioxide (22-30) mmol/L BUN 54 H (9-20) mg/dL Creatinine 2.12 H (0.66-1.25) mg/dL Glucose 122 H (74-99) mg/dL POC Glucose (mg/dL) 131 H 126 H (75-99) mg/dL Magnesium 2.7 H (1.6-2.3) mg/dL Assessment and Plan Assessment: Assessment #1 congestive heart failure exacerbation secondary to diastole dysfunction #2 atypical atrial flutter with variable block #3 status post aortic valve replacement #4 history of stroke #5 multiple comorbid conditions Plan #1 continue the current dose of metoprolol #2 continue oral anticoagulation #3 possible discharge in the next 24 hour
[2018-05-29 11:29] LABS: Glucose,Whole Blood 204 mg/dL (75-99)
--- NOTE | 2018-05-29 11:30 | P.PN ---
Subjective Patient is seen in follow-up for acute kidney injury. Renal function is stable. Creatinine 2.12 today. Currently sitting up in bed. Denies chest pain or shortness of breath. Admits to good urine output. Heart rate controlled. Vital signs are stable. General: The patient appeared well nourished and normally developed. HEENT: Head exam is unremarkable. Neck is without jugular venous distension. LUNGS: Lungs are clear to auscultation and percussion. Breath sounds decreased. HEART: Rate and Rhythm are regular. First and second heart sounds normal. No murmurs, rubs or gallops. ABDOMEN: Abdominal exam reveals normal bowel sounds. Non-tender and non- distended. No evidence of peritonitis. EXTREMITITES: Trace edema. Lower extremities wrapped. Objective - Vital Signs Vital signs: Vital Signs Temp 96.6 F L 05/29/18 08:16 Pulse 92 05/29/18 08:16 Resp 18 05/29/18 08:16 BP 126/71 05/29/18 08:16 Pulse Ox 95 05/29/18 08:16 Intake & Output 05/28/18 05/29/18 05/29/18 18:59 06:59 18:59 Intake Total 100 240 480 Balance 100 240 480 Weight 139 kg Intake: Intake, IV Titration 100 Amount Sodium Ferric Gluconat- 100 Sucrose 125 mg In Sodium Chloride 0.9% 100 ml @ 100 mls/hr IVPB DAILY [facility] Rx#:[id number] Oral 240 480 Other: Voiding Method Urinal Urinal Urinal Diaper Diaper Diaper # Voids 3 3 1 # Bowel Movements 1 1 1 - Labs CBC & Chem 7: 05/28/18 05:55 05/29/18 05:20 Labs: Abnormal Lab Results - Last 24 Hours (Table) 05/28/18 05/28/18 05/28/18 Range/Units 11:51 16:42 21:16 Chloride (98-107) mmol/L BUN (9-20) mg/dL Creatinine (0.66-1.25) mg/dL Glucose (74-99) mg/dL POC Glucose (mg/dL) 159 H 155 H 131 H (75-99) mg/dL Magnesium (1.6-2.3) mg/dL 05/29/18 05/29/18 05/29/18 Range/Units 05:20 05:57 11:27 Chloride 109 H (98-107) mmol/L BUN 54 H (9-20) mg/dL Creatinine 2.12 H (0.66-1.25) mg/dL Glucose 122 H (74-99) mg/dL POC Glucose (mg/dL) 126 H 204 H (75-99) mg/dL Magnesium 2.7 H (1.6-2.3) mg/dL Assessment and Plan Plan: Assessment: 1. Acute kidney injury secondary to ATN secondary to hypotension. Patient was also taking lisinopril and diuretics at home. Creatinine 2.94 on admission. Renal function improved since admission - creatinine 2.12 today. Unclear as to what his baseline renal function is. No evidence of hydronephrosis noted on renal ultrasound. UA benign. 2. Hyperkalemia secondary to acute kidney injury and lisinopril. Stable. 3. Diabetes mellitus. 4. Anemia. Iron deficiency noted. Status post 3 doses of IV iron. 5. History of aortic valve replacement. 6. Atrial flutter maintained on Lopressor. Heart rate controlled. 7. Lower extremity ulcerations maintained on antibiotics. Infectious disease following. 8. Hypotension. Better. Maintained on midodrine. 9. Diastolic CHF with mild to moderate tricuspid regurgitation. Plan: Continue to hold diuretics. Encouraged oral intake. Low potassium diet. Anticipate discharge soon. Repeat basic metabolic panel in 2-3 days postdischarge. Follow up outpatient in the next 1-2 weeks.
[2018-05-29 16:08] VITALS: BP 138/94; PULSE 90; RESP 16
[2018-05-29 16:37] LABS: Glucose,Whole Blood 162 mg/dL (75-99)
[2018-05-29] MEDS ORDERED: AMOXIC-POT CLAV 500-125 MG 1 EACH TAB PO SCH (21:00)
== END 2018-05-29 19:45 | DRG 871 ==
LOC: EC 12:33 → 3SCARD 14:59
PROVIDERS: ADMIT Internal Medicine; ATTEND Internal Medicine
DX: A41.9 Sepsis, unspecified organism (principal); E43 Unspecified severe protein-calorie malnutrition; I50.33 Acute on chronic diastolic (congestive) heart failure; N17.0 Acute kidney failure with tubular necrosis; E87.2 Acidosis; I13.0 Hypertensive heart and chronic kidney disease with heart failure and stage 1 through stage 4 chronic kidney disease, or unspecified chronic kidney disease; I48.4 Atypical atrial flutter; J98.11 Atelectasis; L03.115 Cellulitis of right lower limb; L03.116 Cellulitis of left lower limb; L97.909 Non-pressure chronic ulcer of unspecified part of unspecified lower leg with unspecified severity; M62.82 Rhabdomyolysis; D50.9 Iron deficiency anemia, unspecified; D63.1 Anemia in chronic kidney disease; D69.6 Thrombocytopenia, unspecified; E11.22 Type 2 diabetes mellitus with diabetic chronic kidney disease; E11.51 Type 2 diabetes mellitus with diabetic peripheral angiopathy without gangrene; E11.622 Type 2 diabetes mellitus with other skin ulcer; E78.5 Hyperlipidemia, unspecified; E87.5 Hyperkalemia; I07.1 Rheumatic tricuspid insufficiency; I25.10 Atherosclerotic heart disease of native coronary artery without angina pectoris; I25.2 Old myocardial infarction; I27.20 Pulmonary hypertension, unspecified; I45.10 Unspecified right bundle-branch block; I48.91 Unspecified atrial fibrillation; I87.2 Venous insufficiency (chronic) (peripheral); I87.8 Other specified disorders of veins; J44.9 Chronic obstructive pulmonary disease, unspecified; L30.9 Dermatitis, unspecified; L89.302 Pressure ulcer of unspecified buttock, stage 2; M06.9 Rheumatoid arthritis, unspecified; N18.9 Chronic kidney disease, unspecified; N28.1 Cyst of kidney, acquired; R29.6 Repeated falls; Z91.81 History of falling; Z79.02 Long term (current) use of antithrombotics/antiplatelets; Z79.84 Long term (current) use of oral hypoglycemic drugs; Z79.899 Other long term (current) drug therapy; Z80.0 Family history of malignant neoplasm of digestive organs; Z82.0 Family history of epilepsy and other diseases of the nervous system; Z86.73 Personal history of transient ischemic attack (TIA), and cerebral infarction without residual deficits; Z87.11 Personal history of peptic ulcer disease; Z87.891 Personal history of nicotine dependence; Z95.3 Presence of xenogenic heart valve; Z95.5 Presence of coronary angioplasty implant and graft; Z96.651 Presence of right artificial knee joint; Z90.3 Acquired absence of stomach [part of]; Z98.49 Cataract extraction status, unspecified eye; T46.4X5A Adverse effect of angiotensin-converting-enzyme inhibitors, initial encounter; T50.2X5A Adverse effect of carbonic-anhydrase inhibitors, benzothiadiazides and other diuretics, initial encounter; R41.0 Disorientation, unspecified
CPT/HCPCS: 36415; 70450; 71045; 71046; 76770; 80048; 80053; 81003; 82533; 82728; 83036; 83540; 83550; 83605; 83735; 83880; 84132; 84484; 85025; 85027; 85610; 85730; 87040; 87070; 87205; 93005; 93306; 93970; 94644; 96365; 96368; 96375; 99285